=== PATIENT | female | born 1985 | race Caucasian/White ===

== ENCOUNTER 2018-08-03 11:08 | Emergency (ER) | payer BC, OTHER ==
--- NOTE | 2018-08-03 11:46 | UC ---
General HPI - HPI Summary HPI Summary: 32 yo female approx 3 weeks sinus congestion, runny nose, post nasal drip. Last 2 days c/o R ear pain, and R forehead and cheek pressure. Mild sore throat , attributes to cough. No sob / cp. No GI / / rash sx. Has tried several OTC cold meds without improvement. - History of Current Complaint Stated Complaint: SINUS' AND R EAR PAIN Time Seen by Provider: 08/03/18 11:42 Hx Obtained From: Patient - Allergy/Home Medications Allergies/Adverse Reactions: Allergies Allergy/AdvReac Type Severity Reaction Status Date / Time amoxicillin AdvReac See Comment Verified 08/03/18 11:44 Home Medications: Home Medications Control Pill 1 tab PO DAILY 08/03/18 [History Confirmed 08/03/18] PMH/Surg Hx/FS Hx/Imm Hx Previously Healthy: Yes - Family History Known Family History: Positive: None - Social History Occupation: Employed Full-time Review of Systems Constitutional: Negative Skin: Negative Eyes: Negative ENT: Other - see hpi Respiratory: Cough - see hpi Cardiovascular: Negative Gastrointestinal: Negative Genitourinary: Negative Motor: Negative Neurovascular: Negative Musculoskeletal: Negative Neurological: Negative - see hpi Psychological: Negative Is Patient Immunocompromised?: No All Other Systems Reviewed And Are Negative: Yes Physical Exam Triage Information Reviewed: Yes Appearance: Well-Nourished Vital Signs Reviewed: Yes Eye Exam: Normal ENT: Positive: Other - Post pharynx mild red, no sores or exudates Uvula midline. Tongue benign. R TM dull, griffiths, rtxd L TM normal light reflex + subj tender R frontal sinus R max sinus regions Neck exam: Normal Neck: Positive: Supple, Nontender Respiratory Exam: Normal Respiratory: Positive: Chest non-tender, Lungs clear, Normal breath sounds, No respiratory distress, No accessory muscle use Cardiovascular Exam: Normal Cardiovascular: Positive: RRR, No Murmur, Pulses Normal, Brisk Capillary Refill Abdominal Exam: Normal Abdomen Description: Positive: Nontender Musculoskeletal Exam: Normal - gait steady, moves x 4 ext's Neurological Exam: Normal - grossly nonfocal Psychological Exam: Normal - conversing easily and appropriately Skin Exam: Normal - no visible or reported rash Course/Dx - Course Course Of Treatment: Reviewed coa / tx plan. Questions as posed answered to the best of my ability. - Differential Dx - Multi-Symptom Provider Diagnoses: Sinusitis. R serous otitis Discharge - Sign-Out/Discharge Documenting (check all that apply): Patient Departure All imaging exams completed and their final reports reviewed: No Studies - Discharge Plan Condition: Stable Disposition: HOME Prescriptions: Azithromyxin ABI (NF) [Z-Abi (Zithromax) 250 mg tabs #6] 2 tab PO .TODAY, THEN 1 DAILY #6 tab Fluconazole [Diflucan 150 MG (NF)] 150 mg PO DAILY #2 tab Patient Education Materials: Sinusitis (ED), Serous Otitis Media (ED) Referrals: Danni Beaulieu NP [Primary Care Provider] - Additional Instructions: Follow up with your primary care provider, per routine. Seek medical attention for worse or new problems in the meantime. Use backup method for control (if you are taking pills) during the cycle(s ) in which you are taking antibiotics. Don't forget the azithromycin is long lasting (10 days). - Billing Disposition and Condition Condition: STABLE Disposition: Home
[2018-08-03 11:52] VITALS: BP 134/88
== END 2018-08-03 12:17 | disposition home or self-care (01) ==
LOC: UCCORT 11:08
DX: J32.9 Chronic sinusitis, unspecified (principal); H65.91 Unspecified nonsuppurative otitis media, right ear; Z88.1 Allergy status to other antibiotic agents
CPT/HCPCS: 99202; G0463

== ENCOUNTER 2018-11-26 16:32 | Emergency (ER) | payer OTHER ==
--- OUTSIDE RECORDS SUMMARY | 2018-11-26 16:52 | XMS REPORT | Continuity of Care Document ---
:1985 External Reference #:[id number] Author Name Danni Beaulieu N.P. Address [address] [place] [id number] Care Team Providers Name Role Phone Danni Beaulieu N.P. 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 as needed pain Work Note 11/25 Active no work Christofer 11/26/18 Danni N.P. Hydroxyzine 05/27 Active Capsules 25mg 30caps take 1 to Christofer Pam 2 Mashelle, capsules N.P. by mouth three times a day as needed Proair HFA 11/28 Active Aerosol 108(90Bas 8.500gm 2 puffs e) four Mashelle, mcg/Act times a N.P. day as needed Valtrex 06/25 Active Tablets 1gm 21tabs 1 by mouth Mashelle, three N.P. times a day x 7 days Escitalopram 05/20 Active Tablets 20mg 30tabs Take One Tablet By Danni, Mouth N.P. Every Day BD 06/23 Active 3ml 12units Use Every Month as Danni, Directed N.P. Syringe 25G 1 08/07 Active 12units use q Elverson, 10/15 Inch 3cc /2010 as Danni, directed N.P. Cyanocobalamin 08/09 Active Solution 1000mcg/M 30ml 1 ml im q L 2 weeks Masruchile, N.P. Cefdinir 11/28 Hx Capsules 300mg 20caps 1 by mouth Mashelle, - twice a N.P. 05/27 day x days Prednisone 11/28 Hx Tablets 20mg 10tabs 2 by mouth Mashelle, - every day N.P. 11/25 x 5 days /2018 Fluconazole 09/10 Hx Tablets 150mg 2tabs 1 by mouth Mashelle, - every day N.P. 11/28 x 1 and repeat in 5 days x 1 Amoxicillin 08/27 Hx Tablets 875mg 20tabs 1 by mouth Mashelle, - twice a N.P. 11/28 day x days Lidocaine HCL 04/12 Hx Solution 2% 50ml apply to affected Danni, - area tid N.P. 11/28 as directed Fluconazole 04/11 Hx Tablets 150mg 2tabs 1 by mouth Mashelle, - today and N.P. 11/28 repeat in 5 days Amoxicillin/Clav 04/08 Hx Tablets 875-125mg 20tabs 1 by vazquez Beaulieuanat mouth Mashelle, Potassium - every 12 N.P. 11/14 h for days Azithromycin 06/07 Hx Tablets 250mg 6tabs 2 by mouth day Mashelle, - one then N.P. 02/26 1 by mouth every day x 4 days Bontril PDM 06/07 Hx Tablets 35mg 30tabs 1 po qd Mashelle, - N.P. 02/26 Work Note 05/07 Hx no work 06/07/16-9 Masanne, - for N.P. 02/26 reasons Cheratussin ac 05/07 Hx Syrup 100-10mg/ 236ml 1 5ML teaspoon Masanne, - every 4-6 N.P. 06/07 h as needed cough Augmentin 01/24 Hx Tablets 875-125mg 20tabs 1 by mouth Mashelle, - twice a N.P. 06/07 day x days Bupropion HCL ER 01/02 Hx Tablets ER 150mg 30tabs take one Christofer, (XL) 24HR tablet by Danni, - mouth N.P. 02/26 morning Acetaminophen-Co 07/12 Hx Tablets 300-30mg 40tabs 1-2 tabs Christofer dealva #3 po q Mashelle, - 4-6hours N.P. 01/02 prn pain Work Note 07/12 Hx no work 07/18/15 Masruchile, - for N.P. 01/02 reasons Treximet 05/20 Hx Tablets 85-500mg 9tabs 1 po qt Elverson, first Mashelle, - sign of N.P. 02/26 migraine as directed Phendimetrazine 03/28 Hx Tablets 35mg 60tabs 1 by Christofer Tar mouth Mashelle, - twice a N.P. before meals Bontril PDM 03/08 Hx Tablets 35mg 180tabs 2 tabs Christofer, three Mashelle, - times a N.P. Valtrex 12/21 Hx Tablets 1gm 21tabs 1 by mouth Mashelle, - three N.P. 03/08 times day x 7 days Diflucan 11/12 Hx Tablets 150mg 2tabs 1 by mouth Mashelle, - every day N.P. 03/08 x 1 repeat in 5 days x 1 Augmentin 11/05 Hx Tablets 875-125mg 20tabs 1 by mouth Mashelle, - twice a N.P. 11/12 day x days Medrol (Bryce) 11/05 Hx Tablets 4mg 1pk as directed Danni, - N.P. 11/12 Azithromycin 11/01 Hx Tablets 250mg 6tabs 2 by mouth day Masanne, - one then N.P. 11/05 1 by mouth every day x 4 days Work Note 07/06 Hx no work 05/20/15 Danni, - for N.P. 01/02 reasons Escitalopram 07/06 Hx Tablets 20mg 30tabs Take One Tablet By Danni, - Mouth AT N.P. 05/20 Bed Escitalopram 06/16 Hx Tablets 10mg 30tabs 1 by Christofer, mouth Danni, - every at N.P. 07/06 bed Diflucan 01/13 Hx Tablets 100mg 5tabs 1 tabs qd x 5 days Danni, - N.P. 01/13 Diflucan 01/13 Hx Tablets 150mg 2tabs 1 po qd x and Danni, - repeat in N.P. 06/08 5 days x 1 Augmentin 01/06 Hx Tablets 875-125mg 20tabs 1 po bid x 10 days Danni, - N.P. 06/08 Cheratussin ac 01/06 Hx Syrup 100-10mg/ 236ml 1 5ML teaspoon Danni, - every 4-6 N.P. 06/08 h prn cough Medical Note 12/18 Hx Patient may not Danni, - attend N.P. 06/08 classes at this time for medical reasons Work Note 11/30 Hx No work 10/13/13- Danni, - 10/25/13 N.P. 07/06 medical reasons Cyclobenzaprine 11/17 Hx Tablets 5mg 30tabs 1 po tid , Danni, - N.P. 06/08 Magnesium 11/17 Hx Capsules 400mg 90caps 1 po qd Danni, - N.P. 03/08 Skelaxin 11/05 Hx Tablets 800mg 30tabs take one tablet by Danni, - mouth N.P. 11/17 times a day as needed Physical Therapy 10/23 Hx evaluate and treat Bianca Razo neck N.P. 11/17 strain and L elbow pain dx: neck strain, elbow pain after fall Work Note 10/23 Hx may return to Danni, - unrestric N.P. 11/17 yareli on 10/26/13 Cyclobenzaprine 10/15 Hx Tablets 10mg 30tabs take one tablet by Danni, - mouth N.P. 11/05 times a day Ibuprofen 10/15 Hx Tablets 800mg 32tabs 1 po qid with food Danni, - N.P. 06/08 Anusol-HC 07/22 Hx Suppositor 25mg 15units 1 pr tid y as Danni, - directed N.P. 10/15 Medical Note 07/06 Hx No work 10/23/13-1 Danni, - N.P. 06/08 medical reasons Azithromycin 07/01 Hx Tablets 250mg 6tabs 2 po day one then Danni, - 1 po qd x N.P. 07/22 4 days 03/20 Hx Tablets 1mg Folic 90tabs 1 po qd Elverson, Acid Danni, - N.P. 03/08 Wrist Splint 03/04 Hx 1units l wrist cock-up Danni, - splint at N.P. 10/15 hs Dx: pain/numb ness Valtrex 09/21 Hx Caplets 1,000mg 21caps 1 by Elverson mouth Masruchile, - three N.P. 12/21 times a day x 7 days Vistaril 08/17 Hx Capsules 25mg 30caps 1-2 po q Christofer 6 h prn Danni, - itch N.P. 10/15 Chelsie Allergy 08/07 Hx Tablets 180mg 30tabs 1 po qd Christofer Masanne, - N.P. 03/08 Omeprazole 07/16 Hx Capsules 20mg 90caps [address] Razo, - N.P. 03/08 Zithromax Z-Bryce 07/09 Hx Tablets 250mg 1tabs as directed Danni, - N.P. 08/07 Cheratussin ac 07/09 Hx Syrup 100-10mg/ 236ml 5ML teaspoon Danni, - every 4-6 N.P. 08/07 h prn cough Work Note 07/09 Hx may return to [facility], - work N.P. 10/1508/27/11 Work Note 02/21 Hx no work 02/21/11-5 Danni, - N.P. 07/09 medical reasons Work Note 02/13 Hx no work 02/13/11-/ Danni, - 07/24 N.P. 07/09 medical reasons Work Note 02/06 Hx no work 02/06/11-5 Danni, - N.P. 07/09 medical reasons Diflucan 01/31 Hx Tablets 150mg 1tabs 1 po qd x 1 Danni, - N.P. 07/09 Physical Therapy 01/22 Hx eval and treat l Danni, - wrist N.P. 07/09 pain dx: pain Work Note 01/22 Hx no work 01/22/11-4 Danni, - N.P. 03/19 for medical reasons Work Note 01/15 Hx no work 01/15/11-4/ Danni, - 08/24 for N.P. 03/19 medical reasons Zithromax Z-Bryce 11/09 Hx Tablets 250mg 1tabs as directed Danni, - N.P. 01/15 Tussionex 11/09 Hx Liquid ER 8-10mg/5M 60ml 1 Elverson Pen L teaspoon Danni, Extended Release - q 12 N.P. Ondansetron Odt 10/17 Hx Tablets 4mg 12tabs 1-2 tabs Dispers tid prn Danni, - nausea N.P. 07/09 Work Note 10/[facility] 07/0903/07/11 Buspar 09/18 Hx Tablets 15mg 60tabs 1/2 pill po bid x Danni, - 1 week, N.P. 07/09 then 1 po bid Treximet 07/03 Hx Tablets 85-500mg 8tabs 1 as directed Danni, - N.P. 07/09 Medrol (Bryce) 03/14 Hx Tablets 4mg 1pk directed Masruchile, - N.P. 04/07 Work Note 02/21 Hx no work 07/03/10-9 Danni, - N.P. 09/18 for medical reasons Augmentin 02/07 Hx Tablets 875-125mg 20tabs 1 po bid Epptc c Bianca Nelson MD 02/21 Hydrocodone-Acet 11/17 Hx Tablets 5-500mg 40tabs 1-2 po q Christofer, 4-6h prn Danni, - peralta N.P. 02/07 Work Note 11/17 Hx no work , 11/14/09-2/ Danni, - 02/20 N.P. 02/07 for medical reasons Cyanocobalamin 07/19 Hx Solution 1000mcg/M 1bottle 100mcg L (0.1cc) Danni, - sq q mo N.P. 08/09 Work Note 07/06 Hx no work , 07/06/09-1 Danni, - 0 N.P. 02/07 for medical reasons Diflucan 07/06 Hx Tablets 100mg 5tabs 1 tabs qd x 5 days Danni, - N.P. 02/07 Medrol Dosepak 05/19 Hx Tablets 4mg 1Pack as Eppolito, directete Bianca Álvarez MD 07/06 Bontril PDM 12/13 Hx Tablets 35mg 180tabs 2 tabs , tid 1 Mashelle, - hour N.P. 02/07 meals Lexapro 11/26 Hx Tablets 20mg 30tabs 1 po qd Christofer, Danni, - N.P. 05/19 Lexapro 11/12 Hx Tablets 10mg 30tabs 1 po qd Christofer, Danni, - N.P. 11/26 Work Note 11/12 Hx no work Christofer, 11/12/08-2 Danni, - N.P. 05/19 for medical reasons Omeprazole 11/12 Hx Capsules 20mg 90caps [address] Razo, - N.P. 07/09 Work Note 07/12 Hx no work , 07/12/08-9 Danni, - N.P. 11/12 for medical reasons Tylenol/Codeine 04/22 Hx Tablets #3 30tabs 1-2 po q Christofer, # 4-6 h prn Mashelle, - N.P. 11/12 Phentermine HCL 04/12 Hx Capsules 30mg 30caps 1 po q am Mashelle, - N.P. 11/12 Anaprox DS 04/12 Hx Tablets 550mg 30tabs 1 PO Q HR With Mashelle, - Food N.P. 11/12 Augmentin 04/02 Hx Tablets 875mg 20tabs 1 po q hrs x 10 Mashelle, - days N.P. 04/12 Biaxin 12/17 Hx Tablets 500mg 20tabs 1 po bid x 10 days Mashelle, - N.P. 04/02 Medrol Dosepak 12/17 Hx Tablets 4mg 1PK as , Directed Mashelle, - N.P. 04/02 Proair HFA 12/17 Hx Aerosol 108mcg/Ac 1Can 2 inhales t q 4-6 h Mashelle, - prn N.P. 02/07 Medrol Dosepak 12/17 Hx Tablets 4mg 1PK as , directed Mashelle, - N.P. 04/02 Zithromax Z-Bryce 10/20 Hx Tablets 250mg 1Pak as , Directed Mashelle, - N.P. 12/17 Hycotuss 10/20 Hx Syrup 5-100/5 120ml 1 tsp q Christofer, 4-6 hours Mashelle, - prn cough N.P. 04/02 Work Note 08/29 Hx no work 08/27-/ Mashelle, - 28/04 N.P. 09/23 for medical reasons Miralax 08/14 Hx Powder [id number] 1Bottle 17GM In 8Oz Of Mashelle, - Fluid qd N.P. 10/20 Directed Tylenol/Codeine 08/12 Hx Tablets #3 40tabs 1-2 po q , # 4-6 h prn Mashelle, - N.P. 10/20 Radiology 08/12 Hx l-S Christofer spine, Danni, - coccyx N.P. 09/23 dx: pain Work Note 08/12 Hx please excuse Danni, - from work N.P. 09/2308/14/07-10/15/06 for medical reasons School Note 08/12 Hx no school Christofer08/12/07- Danni, - 08/13/07 N.P. 09/23 for medical reasons Effexor 08/04 Hx Tablets 37.5mg Samples 1 PO qd Elverson Masruchile, - N.P. 10/20 Depakote ER 06/30 Hx Tablets ER 500mg 120tabs 1 Poqd Christofer 24HR Diegole, - N.P. 08/04 Topamax 06/30 Hx Tablets 50mg 90tabs 1 po bid Elverson Diegole, - N.P. 04/12 Flexeril 06/30 Hx Tablets 10mg 30tabs 1 PO q hs Christofer Mashelle, - N.P. 08/04 Keflex 04/14 Hx Capsules 500mg 28caps 1 po qid Christofer x 7 days Diegole, - N.P. 06/30 Diflucan 04/14 Hx Tablets 100mg 10tabs 1 tabs qd Christofer x 10 days Masruchile, - N.P. 06/30 Chelsie-D 24 04/07 Hx Tablets ER 24Hour 90tabs 1 po qd Christofer, 24HR Diegole, - N.P. 02/07 Elocon 03/13 Hx Cream 0.1% 15gm apply bid Christofer Diegole, - N.P. 04/07 Zovirax 02/19 Hx Tablets 400mg 28tabs 1 PO qid Christofer X 7 Days Masruchile, - N.P. 10/20 Work Note 12/30 Hx please excuse Danni, - from work N.P. 01/0112/30 for medical reasons Zithromax Z-Bryce 10/17 Hx Tablets 250mg 1Pak as Directed Mashelle, - N.P. 10/27 Hycotuss 10/17 Hx Liquid 100mg;5mg 120ml 1 tsp ac Christofer, Expectorant /2006 /5ML hs Mashelle, - N.P. 03/13 Duratuss GP 10/17 Hx Tablets 1200mg;12 24tabs 1 po q 12 0 mg h Mashelle, - N.P. 04/07 Work Excuse 10/17 Hx no work 03/25/07-6 Mashelle, - /27/04 N.P. 08/04 for medical reasons Mucinex OTC 08/08 Hx 2 pills every 12 Mashelle, - hours N.P. 10/17 Robitussin Cough 08/08 Hx 2 Gels Christofer, Gels Every 4-6 Mashelle, - Hours as N.P. 03/13 For Cough Biaxin 08/06 Hx Tablets 500mg 20tabs 1 po bid Elverson x 10 days Mashelle, - N.P. 08/18 Zovirax 07/09 Hx Ointment 5% [facility]gm [facility] 07/09 Valtrex 07/09 Hx Caplets 1,000mg 21caps 1 po tid x 7 days Mashelle, - N.P. 05/19 Metronidazole 05/21 Hx Gel 0.75% 70G insert Christofer, one Mashelle, - applicato N.P. 08/08 rful q hs x 5 Fioricet 05/16 Hx Tablets 50mg;40mg 60tabs 1-2 Tabs Christofer, ;325MG Q 4 Hours Mashelle, - as Needed N.P. 10/20 Headache Ortho-Novum 01/03 Hx Tablets 1mg;0.035 3Pak 1 po qd mg Mashelle, - N.P. 03/20 Tussi-12D 12/11 Hx Tablets 60mg;5 mg 24tabs 2 tabs q Elverson, /2006 12 hrs Mashelle, - N.P. 01/03 Vicodin 11/08 Hx Tablets 5mg;500 30tabs 1 po q mg 4-6 hrs Mashelle, - prn N.P. 01/03 Medrol Dose Bryce 05/03 Hx Tablets 4mg 1PK as directed Masruchile, - N.P. 01/03 Ortho-Novum 04/23 Hx Tablets 0.5mg;0.0 1Pack 1 po qd Elverson, 35mg;0.75 Mashelle, - MG N.P. 01/03 Gabitril 02/12 Hx Tablets 4mg 30tabs 1 po qhs Masruchile, - N.P. 01/03 Nortrel 01/16 Hx Tablets 0.035mg;0 84tabs .5 mg Diegole, - N.P. 01/03 Nexium 01/15 Hx Capsules 40mg 90caps 1 po 1/2hour Danni, - prior to N.P. 03/15 dinner /2009 Keflex 01/02 Hx Tablets 500mg 21tabs 1 po tid x 7 days Masruchile, - N.P. 01/03 Lidex 01/02 Hx Cream 0.05% 30gm apply bid x 10 days Danni, - N.P. 01/03 Wellbutrin XL 01/02 Hx Tablets 300mg 90tabs 1 po qd in am anne, - N.P. 05/16 Tylenol W11/20 Hx Tablets 300mg;30 30tabs 1 -2 tabs Elverson, Codeine #3 /2004 mg po qhs4-6 Masruchile, - prn pain N.P. 01/03 Inderal Hx Tablets 80mg 0tabs 1 po bid Unknown /0000 - 08/08 Amitriptyline Hx Tablets 10mg 0tabs 3 po hs Unknown /0000 - 03/13 Medications Administered in Office Medication Date Status Form Strength Qnty SIG Indications Ordering Provider PPD Administered Injection Christofer, 018 Mashelle, N.P. B-12 Injection Administered Injection Christofer, 011 Mashelle, N.P. B-12 Injection Administered Injection Christofer, 011 Mashelle, N.P. B-12 Injection Administered Injection Elverson, 010 Mashelle, N.P. B-12 Injection Administered Injection Nurses 010 Schedule Hudson Torodol Administered Injection Elverson, Injection 15 010 Mashelle, MG Dose N.P. Torodol Administered Injection Elverson, Injection 15 010 Mashelle, MG Dose N.P. B-12 Injection Administered Injection Nurses 010 Schedule Hudson B-12 Injection Administered Injection Christofer, 010 Mashelle, N.P. B-12 Injection Administered Injection Nurses 010 Schedule Hudson B-12 Injection Administered Injection Nurses 010 Schedule [place] B-12 Injection Administered Injection Nurses 010 Schedule [place] B-12 Injection Administered Injection Christofer, 010 Mashelle, N.P. B-12 Injection Administered Injection Nurses 010 Schedule [place] B-12 Injection Administered Injection Nurses 010 Schedule [place] B-12 Injection Administered Injection Nurses 010 Schedule [place] B-12 Injection Administered Injection Nurses 010 Schedule [place] B-12 Injection Administered Injection Nurses 009 Schedule Hudson B-12 Injection Administered Injection Nurses 009 Schedule [place] B-12 Injection Administered Injection Nurses 009 Schedule [place] B-12 Injection Administered Injection Nurses 009 Schedule [place] B-12 Injection Administered Injection Nurses 009 Schedule [place] B-12 Injection Administered Injection Nurses 009 Schedule [place] B-12 Injection Administered Injection Nurses 009 Schedule [place] B-12 Injection Administered Injection Nurses 009 Schedule [place] B-12 Injection Administered Injection Elverson, 009 Mashelle, N.P. Torodol Administered Injection Elverson, Injection 15 003 Mashelle, MG Dose N.P. PPD Administered Injection Elverson, 003 Mashelle, N.P. Immunizations CPT Code Status Date Vaccine Lot # [id number] Given 02/07/2010 Tetanus And Diptheria Toxoids For Adult [id number] Use-preservative free 51215 Given 09/08/2003 Afluria Or Fluvirin Flu Vac Intramuscular 20025 Given 10/23/2000 Influenza Virus Vaccine, Whole Virus, Intramuscular Or Jet Inj. 39500 Given 04/25/1999 Immunization Td 7 Yrs Or Older 69008 Given 02/27/1990 IPV / Poliomyelitis Immunization 52291 Given 02/27/1990 MMR Virus Immunization 95048 Given 02/27/1990 DTaP Immunization 7 Yrs & Younger [id number] 15164 Given 04/05/1986 IPV / Poliomyelitis Immunization 71975 Given 04/05/1986 DTaP Immunization 7 Yrs & Younger [id number] 72430 Given 01/20/1986 MMR Virus Immunization 51725 Given 09/07/1985 IPV / Poliomyelitis Immunization [id number] 78661 Given 04/03/1985 DTaP Immunization 7 Yrs & Younger [id number] 98043 Given 03/02/1985 IPV / Poliomyelitis Immunization 98823 Given 03/02/1985 DTaP Immunization 7 Yrs & Younger [id number] 38506 Given 1984 IPV / Poliomyelitis Immunization 96688 Given 1984 DTaP Immunization 7 Yrs & Younger [id number] 88329 Refused 08/03/2018 Influenza Vac, Quadrivalent, Split, 0.5mL Dosage, Im Use Vital Signs Date Vital Result Comment 11/25/2018 11:38am Body Temperature 97.7 F Weight 256.12 lb Heart Rate 82 /min BP Systolic 124 mmHg BP Diastolic 72 mmHg O2 % BldC Oximetry 98 % 05/27/2018 11:20am BP Systolic 126 mmHg BP Diastolic 82 mmHg 05/27/2018 11:10am Body Temperature 98.4 F Weight 254.00 lb Heart Rate 78 /min O2 % BldC Oximetry 98 % 11/28/2017 10:28am Body Temperature 97.9 F Heart Rate 84 /min BP Systolic 118 mmHg BP Diastolic 82 mmHg O2 % BldC Oximetry 96 % 08/27/2017 3:23pm Body Temperature 98.6 F Weight 260.00 lb Heart Rate 75 /min BP Systolic 123 mmHg BP Diastolic 84 mmHg O2 % BldC Oximetry 99 % 04/12/2017 10:42am Body Temperature 98.1 F Weight 253.00 lb Heart Rate 93 /min BP Systolic 122 mmHg BP Diastolic 83 mmHg O2 % BldC Oximetry 99 % 04/08/2017 9:28am Body Temperature 98.1 F Weight 252.00 lb Heart Rate 94 /min BP Systolic 100 mmHg BP Diastolic 70 mmHg O2 % BldC Oximetry 98 % 02/26/2017 2:44pm Body Temperature 97.9 F Weight 260.00 lb Heart Rate 93 /min BP Systolic 143 mmHg BP Diastolic 97 mmHg Height 68 inches 5'8" O2 % BldC Oximetry 99 % BMI (Body Mass Index) 39.5 kg/m2 06/07/2016 10:19am Body Temperature 97.2 F Weight 247.00 lb Heart Rate 113 /min BP Systolic 132 mmHg BP Diastolic 85 mmHg O2 % BldC Oximetry 97 % 05/07/2016 11:54am Body Temperature 98.4 F Weight 244.38 lb Heart Rate 80 /min BP Systolic 129 mmHg BP Diastolic 88 mmHg O2 % BldC Oximetry 98 % 01/25/2016 10:01am Body Temperature 97.5 F Weight 248.50 lb Heart Rate 92 /min BP Systolic 118 mmHg BP Diastolic 74 mmHg O2 % BldC Oximetry 99 % 01/03/2016 8:34am Body Temperature 97.9 F Weight 250.00 lb Heart Rate 99 /min BP Systolic 104 mmHg BP Diastolic 74 mmHg O2 % BldC Oximetry 98 % 07/12/2015 1:23pm Body Temperature 97.7 F Weight 244.38 lb Heart Rate 88 /min BP Systolic 128 mmHg BP Diastolic 98 mmHg O2 % BldC Oximetry 98 % 05/20/2015 10:01am Body Temperature 97.3 F Weight 243.00 lb Heart Rate 101 /min BP Systolic 118 mmHg BP Diastolic 84 mmHg O2 % BldC Oximetry 98 % 03/28/2015 9:15am Weight 251.00 lb Height 68 inches 5'8" BMI (Body Mass Index) 38.2 kg/m2 02/21/2015 8:06am Body Temperature 97.5 F Weight 251.00 lb Heart Rate 83 /min BP Systolic 100 mmHg BP Diastolic 68 mmHg O2 % BldC Oximetry 98 % 01/04/2015 10:58am Body Temperature 97.5 F Weight 247.50 lb Heart Rate 84 /min BP Systolic 124 mmHg BP Diastolic 86 mmHg O2 % BldC Oximetry 98 % 11/01/2014 9:38am Body Temperature 98.5 F Heart Rate 116 /min BP Systolic 110 mmHg BP Diastolic 70 mmHg Respiratory Rate 20 /min O2 % BldC Oximetry 97 % 07/06/2014 1:27pm Weight 236.50 lb Heart Rate 87 /min BP Systolic 118 mmHg BP Diastolic 72 mmHg O2 % BldC Oximetry 98 % 06/16/2014 10:11am Body Temperature 98.3 F Weight 236.25 lb Heart Rate 81 /min BP Systolic 120 mmHg BP Diastolic 72 mmHg O2 % BldC Oximetry 98 % 06/08/2014 1:38pm Body Temperature 98.2 F Weight 234.00 lb Heart Rate 71 /min BP Systolic 100 mmHg BP Diastolic 72 mmHg O2 % BldC Oximetry 98 % 01/06/2014 9:57am Body Temperature 97.9 F Weight 243.12 lb Heart Rate 91 /min BP Systolic 112 mmHg BP Diastolic 78 mmHg O2 % BldC Oximetry 98 % 12/28/2013 9:56am Body Temperature 98.1 F Weight 243.00 lb Heart Rate 81 /min BP Systolic 120 mmHg BP Diastolic 80 mmHg O2 % BldC Oximetry 97 % 12/18/2013 9:37am Body Temperature 98.0 F Weight 241.00 lb Heart Rate 89 /min BP Systolic 120 mmHg BP Diastolic 72 mmHg O2 % BldC Oximetry 98 % 11/30/2013 1:20pm Body Temperature 97.6 F Weight 246.12 lb Heart Rate 82 /min BP Systolic 112 mmHg BP Diastolic 80 mmHg O2 % BldC Oximetry 98 % 11/17/2013 10:55am Body Temperature 96.3 F Weight 241.25 lb Heart Rate 83 /min BP Systolic 110 mmHg BP Diastolic 80 mmHg O2 % BldC Oximetry 98 % 11/05/2013 9:58am Body Temperature 97.9 F Weight 240.00 lb Heart Rate 83 /min BP Systolic 130 mmHg BP Diastolic 80 mmHg Respiratory Rate 20 /min O2 % BldC Oximetry 98 % 10/23/2013 10:57am Body Temperature 98.3 F Weight 241.00 lb Heart Rate 77 /min BP Systolic 108 mmHg BP Diastolic 78 mmHg O2 % BldC Oximetry 98 % 10/15/2013 10:36am Body Temperature 97.6 F Weight 239.38 lb Heart Rate 81 /min BP Systolic 130 mmHg BP Diastolic 76 mmHg O2 % BldC Oximetry 98 % 07/22/2013 10:44am Body Temperature 96.6 F Weight 231.00 lb Heart Rate 84 /min BP Systolic 120 mmHg BP Diastolic 70 mmHg O2 % BldC Oximetry 98 % 07/01/2013 10:51am Body Temperature 98.7 F Weight 236.00 lb Heart Rate 96 /min BP Systolic 128 mmHg BP Diastolic 80 mmHg O2 % BldC Oximetry 97 % 03/20/2012 10:13am Body Temperature 97.8 F Weight 231.00 lb Heart Rate 85 /min BP Systolic 135 mmHg BP Diastolic 81 mmHg O2 % BldC Oximetry 100 % 03/04/2012 9:00am Body Temperature 98.2 F Weight 233.00 lb Heart Rate 95 /min BP Systolic 130 mmHg BP Diastolic 85 mmHg O2 % BldC Oximetry 98 % 08/24/2011 9:17am Body Temperature 97.4 F Weight 229.00 lb Heart Rate 88 /min BP Systolic 117 mmHg BP Diastolic 80 mmHg O2 % BldC Oximetry 98 % 08/17/2011 8:46am Body Temperature 98.0 F Weight 224.00 lb Heart Rate 84 /min BP Systolic 118 mmHg BP Diastolic 80 mmHg O2 % BldC Oximetry 98 % 08/07/2011 11:31am Body Temperature 97.9 F Weight 225.00 lb Heart Rate 98 /min BP Systolic 108 mmHg BP Diastolic 68 mmHg O2 % BldC Oximetry 99 % 07/09/2011 1:26pm Body Temperature 97.6 F Weight 225.00 lb Heart Rate 77 /min BP Systolic 102 mmHg BP Diastolic 70 mmHg O2 % BldC Oximetry 98 % 03/20/2011 9:16am Weight 224.00 lb Heart Rate 73 /min BP Systolic 102 mmHg BP Diastolic 70 mmHg Height 68 inches 5'8" O2 % BldC Oximetry 97 % BMI (Body Mass Index) 34.1 kg/m2 02/20/2011 12:13pm Heart Rate 109 /min BP Systolic 100 mmHg BP Diastolic 68 mmHg O2 % BldC Oximetry 98 % 02/13/2011 10:58am Weight 230.00 lb Heart Rate 93 /min BP Systolic 110 mmHg BP Diastolic 70 mmHg O2 % BldC Oximetry 97 % 02/06/2011 1:41pm Weight 231.00 lb Heart Rate 74 /min BP Systolic 120 mmHg BP Diastolic 80 mmHg O2 % BldC Oximetry 98 % 01/22/2011 10:10am Weight 226.00 lb Heart Rate 96 /min BP Systolic 102 mmHg BP Diastolic 70 mmHg 01/15/2011 2:22pm Weight 231.00 lb Heart Rate 91 /min BP Systolic 110 mmHg BP Diastolic 68 mmHg O2 % BldC Oximetry 99 % 11/09/2010 7:51am Body Temperature 98.4 F Weight 224.00 lb Heart Rate 93 /min BP Systolic 110 mmHg BP Diastolic 80 mmHg O2 % BldC Oximetry 96 % 10/17/2010 11:51am Body Temperature 97.8 F Weight 236.00 lb Heart Rate 85 /min BP Systolic 118 mmHg BP Diastolic 78 mmHg Height 68 inches 5'8" O2 % BldC Oximetry 97 % BMI (Body Mass Index) 35.9 kg/m2 09/18/2010 11:29am Body Temperature 98.1 F Weight 230.00 lb Heart Rate 88 /min BP Systolic 120 mmHg BP Diastolic 74 mmHg Height 68 inches 5'8" O2 % BldC Oximetry 98 % BMI (Body Mass Index) 35.0 kg/m2 07/03/2010 1:20pm Weight 228.00 lb Heart Rate 94 /min BP Systolic 110 mmHg BP Diastolic 80 mmHg O2 % BldC Oximetry 99 % 06/29/2010 11:44am Weight 229.00 lb Heart Rate 76 /min BP Systolic 110 mmHg BP Diastolic 72 mmHg 04/12/2010 3:45pm Body Temperature 98.1 F Weight 230.00 lb Heart Rate 78 /min BP Systolic 120 mmHg BP Diastolic 70 mmHg Height 68 inches 5'8" O2 % BldC Oximetry 99 % BMI (Body Mass Index) 35.0 kg/m2 04/07/2010 10:16am Body Temperature 98.1 F Weight 228.00 lb Heart Rate 82 /min BP Systolic 130 mmHg BP Diastolic 72 mmHg 02/08/2010 12:30pm Body Temperature 98.2 F Heart Rate 102 /min BP Systolic 118 mmHg BP Diastolic 68 mmHg Height 68 inches 5'8" O2 % BldC Oximetry 98 % 02/07/2010 1:01pm Body Temperature 98.1 F Weight 228.00 lb BP Systolic 128 mmHg BP Diastolic 82 mmHg 12/23/2009 8:49am Body Temperature 97.8 F Weight 228.00 lb Heart Rate 76 /min BP Systolic 124 mmHg BP Diastolic 76 mmHg 11/17/2009 9:07am Body Temperature 98.0 F Weight 222.00 lb Heart Rate 70 /min BP Systolic 122 mmHg BP Diastolic 70 mmHg 07/19/2009 9:13am Body Temperature 98.3 F Weight 221.00 lb Heart Rate 70 /min BP Systolic 142 mmHg BP Diastolic 70 mmHg 07/06/2009 12:25pm Body Temperature 97.6 F Weight 223.00 lb Heart Rate 82 /min BP Systolic 126 mmHg BP Diastolic 78 mmHg Height 68 inches 5'8" BMI (Body Mass Index) 33.9 kg/m2 05/19/2009 3:05pm Body Temperature 97.8 F Weight 221.00 lb Heart Rate 78 /min BP Systolic 122 mmHg BP Diastolic 76 mmHg 12/17/2008 8:56am Body Temperature 97.7 F Weight 218.00 lb Heart Rate 78 /min BP Systolic 128 mmHg BP Diastolic 70 mmHg 12/13/2008 1:31pm Body Temperature 97.9 F Weight 215.00 lb Heart Rate 80 /min BP Systolic 118 mmHg BP Diastolic 84 mmHg Height 67.5 inches 5'7.50" BMI (Body Mass Index) 33.2 kg/m2 11/26/2008 10:20am Body Temperature 98.3 F Weight 212.00 lb Heart Rate 82 /min BP Systolic 116 mmHg BP Diastolic 78 mmHg Height 67.5 inches 5'7.50" O2 % BldC Oximetry 98 % BMI (Body Mass Index) 32.7 kg/m2 11/12/2008 8:12am Body Temperature 98.7 F Weight 208.00 lb Heart Rate 87 /min BP Systolic 120 mmHg BP Diastolic 78 mmHg Height 67.5 inches 5'7.50" O2 % BldC Oximetry 98 % BMI (Body Mass Index) 32.1 kg/m2 07/12/2008 1:38pm Body Temperature 97.6 F Weight 199.00 lb Heart Rate 92 /min BP Systolic 121 mmHg BP Diastolic 83 mmHg Height 65 inches 5'5" BMI (Body Mass Index) 33.1 kg/m2 05/13/2008 3:25pm Body Temperature 98.4 F Weight 203.00 lb Heart Rate 82 /min BP Systolic 126 mmHg BP Diastolic 74 mmHg Height 65 inches 5'5" BMI (Body Mass Index) 33.8 kg/m2 04/15/2008 9:48am Weight 210.00 lb Height 65 inches 5'5" BMI (Body Mass Index) 34.9 kg/m2 04/12/2008 3:27pm Body Temperature 98.1 F Weight 210.00 lb Heart Rate 76 /min BP Systolic 120 mmHg BP Diastolic 66 mmHg 04/02/2008 9:54am Body Temperature 97.6 F Weight 209.00 lb Heart Rate 76 /min BP Systolic 138 mmHg BP Diastolic 90 mmHg 12/18/2007 1:48pm Body Temperature 98.1 F Weight 199.00 lb Heart Rate 89 /min BP Systolic 127 mmHg BP Diastolic 73 mmHg 10/20/2007 1:15pm Body Temperature 98.6 F Weight 199.00 lb Heart Rate 92 /min BP Systolic 118 mmHg BP Diastolic 73 mmHg 08/29/2007 9:42am Weight 198.00 lb Heart Rate 93 /min BP Systolic 118 mmHg BP Diastolic 80 mmHg 08/12/2007 8:55am Body Temperature 97.5 F Weight 197.00 lb Heart Rate 81 /min BP Systolic 116 mmHg BP Diastolic 79 mmHg 08/04/2007 10:50am Body Temperature 97.1 F Weight 197.00 lb Heart Rate 75 /min BP Systolic 111 mmHg BP Diastolic 72 mmHg 06/30/2007 10:28am Body Temperature 97.9 F Weight 191.00 lb Heart Rate 72 /min BP Systolic 110 mmHg BP Diastolic 86 mmHg 04/14/2007 3:21pm Body Temperature 98.1 F Weight 196.00 lb Heart Rate 88 /min BP Systolic 90 mmHg BP Diastolic 60 mmHg 04/07/2007 3:25pm Body Temperature 98.5 F Weight 194.00 lb Heart Rate 80 /min BP Systolic 102 mmHg BP Diastolic 64 mmHg 03/13/2007 8:05am Body Temperature 97.9 F Weight 193.00 lb Heart Rate 76 /min BP Systolic 100 mmHg BP Diastolic 70 mmHg 11/14/2006 1:09pm Body Temperature 98.0 F Weight 186.00 lb Heart Rate 76 /min BP Systolic 132 mmHg BP Diastolic 68 mmHg 10/17/2006 8:05am Body Temperature 97.4 F Weight 187.00 lb Heart Rate 72 /min BP Systolic 104 mmHg BP Diastolic 60 mmHg 08/08/2006 1:08pm Body Temperature 98.2 F Weight 184.00 lb Heart Rate 100 /min BP Systolic 120 mmHg BP Diastolic 70 mmHg 05/16/2006 1:33pm Weight 186.00 lb Heart Rate 60 /min BP Systolic 100 mmHg BP Diastolic 64 mmHg 01/03/2006 1:48pm Body Temperature 98.4 F Weight 185.00 lb Heart Rate 100 /min BP Systolic 124 mmHg BP Diastolic 70 mmHg 12/13/2005 3:43pm Body Temperature 98.4 F Weight 183.00 lb Heart Rate 96 /min BP Systolic 116 mmHg BP Diastolic 80 mmHg 11/20/2005 1:34pm Body Temperature 97.8 F Weight 185.00 lb Heart Rate 100 /min BP Systolic 108 mmHg BP Diastolic 70 mmHg 11/13/2005 2:17pm Body Temperature 98.2 F Weight 188.00 lb Heart Rate 84 /min BP Systolic 120 mmHg BP Diastolic 84 mmHg 08/28/2005 10:48am Body Temperature 98.9 F Weight 180.00 lb Heart Rate 88 /min BP Systolic 104 mmHg BP Diastolic 74 mmHg 02/19/2005 10:11am Body Temperature 98.1 F Weight 191.00 lb Heart Rate 84 /min BP Systolic 110 mmHg BP Diastolic 74 mmHg 01/02/2005 2:27pm Body Temperature 98.0 F Weight 196.00 lb Heart Rate 88 /min BP Systolic 126 mmHg BP Diastolic 80 mmHg Results Test Date Facility Test Result H/L Range Note Laboratory test finding 02/26/2017 [facility] TSH 0.78 uIU/mL 0.35-4.94 1 CBC With Auto Diff 02/26/2017 [facility] WBC 7.9 K/uL 4.1-11.0 RBC 4.79 M/uL 4.00-5.40 Hemoglobin 13.4 gm/dL 12.0-16.0 Hematocrit 40.4 % 36.0-47.0 MCV 84.5 fL 80.0-97.0 MCH 28.0 pg 27.0-32.0 MCHC 33.1 g/dL 32.0-36.0 RDW 14.4 % 11.5-14.5 PLT Count 263 K/ul 140-400 Neutrophil 60.4 % 35.0-75.0 Lymphocyte 31.3 % 16.0-52.0 Monocyte 6.3 % 2.0-10.0 Eosinophil 1.4 % 0.0-5.0 Basophil 0.6 % 0.0-4.0 Abs Neutrophils 4.8 K/uL 2.1-8.0 Abs Lymphocytes 2.5 K/uL 0.8-5.5 Abs Monocytes 0.5 K/uL 0.1-1.0 Abs Eosinophils 0.1 K/uL 0.0-0.5 Abs Basophils 0.1 K/uL 0.0-0.3 Comprehensive Metabolic (CMP) 02/26/2017 [facility] Sodium 140 mmol/L 135- 146 2 Potassium 6.1 No visible h <SEE NOTE> mmol/L High 3.5-5.2 3 Chloride# 105 mmol/L 97-110 4 Carbon Dioxide 27 mmol/L 24-34 Glucose 90 mg/dL 70-105 BUN 12 mg/dL 6-26 Creatinine 0.7 mg/dL 0.5-1.4 Calcium 9.3 mg/dL 8.5-10.2 Total Protein 7.1 g/dL 6.0-8.0 Albumin 4.3 g/dL 3.6-4.9 Globulin 2.8 g/dL 2.0-3.5 A/G Ratio 1.5 Ratio 1.0-2.2 Total Bilirubin 0.3 mg/dL 0.1-1.3 Alkaline Phosphatase 82 U/L 24-140 Alt 18 U/L 3-42 Ast 15 U/L 8-42 Lorena Egfr >60 >60 5 Non [place]orena Egfr >60 >60 6 Anion Gap 14 mmol/L 7-16 7 Lipid 02/26/2017 [facility] Cholesterol 200 mg/dL High 50-199 Triglycerides 196 mg/dL 30-200 HDL 62 mg/dL 35-85 8 Chol/ HDL Ratio 3.2 ratio Low 3.7-5.6 VLDL 39 mg/dL High 2-29 LDL (Calc) 99 mg/dL 20-99 9 Laboratory test finding 02/26/2017 [facility] Vitamin B12 253 pg/mL 180- 914 Lyme Igm/Igg AB -RL 02/26/2017 [facility] Lyme Igm/Igg AB @ NEGATIVE (Neg) 10 Comprehensive Metabolic 02/21/2015 [facility] Sodium 141 mmol/L 134-142 11 (CMP) Potassium 4.9 mmol/L 3.5-5.2 Chloride 108 mmol/L 97-109 Carbon Dioxide 25 mmol/L 24-34 Glucose 98 mg/dL 70-105 BUN 10 mg/dL 6-26 Creatinine 0.6 mg/dL 0.5-1.4 Calcium 8.7 mg/dL 8.5-10.2 Total Protein 6.6 g/dL 6.0-8.0 Albumin 3.9 g/dL 3.6-4.9 Globulin 2.7 g/dL 2.0-3.5 A/G Ratio 1.4 Ratio 1.0-2.2 Total Bilirubin 0.2 mg/dL 0.1-1.3 Alkaline Phosphatase 62 U/L 24-140 Alt 12 U/L 3-42 Ast 10 U/L 8-42 Anion Gap 13 mmol/L 6-14 Lorena Egfr >60 >60 12 Non [place] Egfr >60 >60 13 Laboratory test finding 02/21/2015 [facility] Vitamin B12 149 pg/mL Low 180- 914 TSH 1.75 0.35-4.94 CBC With Auto Diff 02/21/2015 [facility] WBC 5.2 K/uL 4.1-11.0 RBC 4.51 M/uL Low 4.60-6.10 Hemoglobin 13.0 gm/dL Low 13.5-18.0 Hematocrit 39.7 % Low 41.0-53.0 MCV 87.9 fL 80.0-97.0 MCH 28.9 pg 27.0-32.0 MCHC 32.9 g/dL 32.0-36.0 RDW 13.8 % 11.5-14.5 PLT Count 205 K/ul 140-400 Neutrophil 49.2 % 35.0-75.0 Lymphocyte 40.1 % 16.0-52.0 Monocyte 6.8 % 2.0-10.0 Eosinophil 3.0 % 0.0-5.0 Basophil 0.9 % 0.0-4.0 Abs Neutrophils 2.6 K/uL 2.1-8.0 Abs Lymphocytes 2.1 K/uL 0.8-5.5 Abmon 0.4 K/uL 0.1-1.0 Abs Eosinophils 0.2 K/uL 0.0-0.5 Abs Basophils 0.0 K/uL 0.0-0.3 Laboratory test finding 07/22/2013 [facility] Vitamin B12 615 pg/mL 180- 914 CBC With Auto Diff 07/22/2013 [facility] WBC 6.1 K/uL 4.1-11.0 RBC 4.81 M/uL 4.60-6.10 Hemoglobin 13.9 gm/dL 13.5-18.0 Hematocrit 41.8 % 41.0-53.0 MCV 86.9 fL 80.0-97.0 MCH 28.9 pg 27.0-32.0 MCHC 33.3 g/dL 32.0-36.0 RDW 13.4 % 11.5-14.5 PLT Count 259 K/ul 140-400 Neutrophil 49.4 % 35.0-75.0 Lymphocyte 42.0 % 16.0-52.0 Monocyte 6.4 % 2.0-10.0 Eosinophil 1.5 % 0.0-5.0 Basophil 0.7 % 0.0-4.0 Abs Neutrophils 3.0 K/uL 2.1-8.0 Abs Lymphocytes 2.6 K/uL 0.8-5.5 Abmon 0.4 K/uL 0.1-1.0 Abs Eosinophils 0.1 K/uL 0.0-0.5 Abs Basophils 0.0 K/uL 0.0-0.3 Laboratory test 03/20/2011 [facility] 14 finding [phone] Allia <SEE NOTE> Affirm 03/20/2011 [facility] Trichomonas Negative Negative Vaginalis Gardnerella Vaginalis Negative Negative [place] Species Negative Negative Laboratory test finding 03/20/2011 [facility] Pap SEE NOTE 15 HPV Negative Negative 16 Laboratory test 04/07/2010 [facility] (Do not Use) TSH 0.99 uIU/ml 0.34 -5.60 17 finding [facility] [place] [address] [phone] Free T4 0.80 ng/dL 0.50-1.60 T3 (Triiodothyronine) - [place] 2.0 ng/mL High 0.7-1.9 18 Basic (BMP) 04/07/2010 [facility] (Do not Use) Sodium 141 mmol/L 135- 144 [facility] [place] [address] [phone] Potassium 4.4 mmol/L 3.6-5.2 Chloride 111 mmol/L High 97-110 Carbon Dioxide 22 mmol/L Low 23-32 Glucose 84 mg/dL 70-105 BUN 12 mg/dL 6-22 Creatinine 0.6 mg/dL 0.5-1.3 BUN/CR 20 Ratio Anion Gap 12 mmol/L 8-16 Calcium 9.3 mg/dL 8.6-10.2 19 GFR Calculation > 60 mL/min 60-175 20 GFR For > 60 mL/min 60-175 21 Laboratory test 02/21/2010 [facility] (Do not Use) Sure[facility] Pap - [place] (SEE NOTE) 22 finding [facility] [place] [address] [phone] Laboratory test 02/07/2010 [facility] (Do not Use) Helicobacter <0.40 U/ ML (<0.9 23, 24 finding [facility] Pylori AB Igg - 0) [place] [address] [place] [phone] Laboratory test 10/24/2009 [facility] (Do not Use) Vitamin B12 447 pg/mL 180-9 finding [facility] [address] [place], [place] [id number] [phone] CBC With Auto 10/24/2009 [facility] (Do not Use) WBC 6.7 K/ul 4.0-1 Diff [facility] 0.[address] [place] [id number] [phone] RBC 4.82 M/ul 4.70-6.10 Hemoglobin 14.0 GM/dl 13.5-18.0 Hematocrit 42.5 % 42.0-52.0 MCV 88.3 FL 80.0-97.0 MCH 29.1 pg 27.0-31.0 MCHC 32.9 g/dL 32.0-36.0 RDW 13.2 % 11.5-14.5 Platelet Count 243 K/ul 140-440 Neutrophils 44.7 % Low 50-70 Lymphocytes 46.6 % High 20-44 Monocytes 7.4 % 2-9 Eosinophil 0.9 % 0-4 Basophil 0.4 % 0-2 Absolute Neutrophils 3.0 K/ul 2.05-7.63 Absolute Lymphocytes 3.1 K/ul 0.8-4.8 Absolute Monocytes 0.5 K/ul 0.1-1.0 Absolute Eosinophils 0.1 K/ul 0.1-0.5 Absolute Basophils 0.0 K/ul 0.0-0.3 Hematology Comment (Comm2) N/A CBC With Auto Diff 08/09/2009 [facility] (Do not Use) WBC 4.5 K/ul 4.0- 10.9 25 [facility] [place], [place] [id number] [phone] RBC 4.40 M/ul Low 4.70-6.10 Hemoglobin 13.0 GM/dl Low 13.5-18.0 Hematocrit 39.0 % Low 42.0-52.0 MCV 88.7 FL 80.0-97.0 MCH 29.6 pg 27.0-31.0 MCHC 33.4 g/dL 32.0-36.0 RDW 13.3 % 11.5-14.5 Platelet Count 211 K/ul 140-440 Neutrophils 47.7 % Low 50-70 Lymphocytes 43.4 % 20-44 Monocytes 6.9 % 2-9 Eosinophil 1.5 % 0-4 Basophil 0.5 % 0-2 Absolute Neutrophils 2.1 K/ul 2.05-7.63 Absolute Lymphocytes 1.9 K/ul 0.8-4.8 Absolute Monocytes 0.3 K/ul 0.1-1.0 Absolute Eosinophils 0.1 K/ul 0.1-0.5 Absolute Basophils 0.0 K/ul 0.0-0.3 Hematology Comment (Comm2) N/A Laboratory test 08/09/2009 [facility] (Do not Use) Vitamin B12 431 pg/mL 180-914 finding [facility] [place] [address] [phone] Laboratory test 07/12/2009 [facility] (Do not Use) Vitamin B12 153 pg/mL Low 180-914 26 finding [facility] [place] [address] [phone] Folate 14.3 ng/ml 6.6-20.0 27 CBC With Auto Diff 07/12/2009 [facility] (Do not Use) WBC 5.6 K/ul 4.0- 10.9 [facility] [place] [address] [phone] RBC 4.63 M/ul Low 4.70-6.10 Hemoglobin 13.9 GM/dl 13.5-18.0 Hematocrit 40.7 % Low 42.0-52.0 MCV 87.8 FL 80.0-97.0 MCH 30.1 pg 27.0-31.0 MCHC 34.3 g/dL 32.0-36.0 RDW 12.8 % 11.5-14.5 Platelet Count 236 K/ul 140-440 Neutrophils 40.8 % Low 50-70 Lymphocytes 49.3 % High 20-44 Monocytes 8.5 % 2-9 Eosinophil 1.0 % 0-4 Basophil 0.4 % 0-2 Absolute Neutrophils 2.3 K/ul 2.05-7.63 Absolute Lymphocytes 2.8 K/ul 0.8-4.8 Absolute Monocytes 0.5 K/ul 0.1-1.0 Absolute Eosinophils 0.1 K/ul 0.1-0.5 Absolute Basophils 0.0 K/ul 0.0-0.3 Hematology Comment (Comm2) N/A Lipid Panel 02/24/2009 [facility] (Do not Use) Cholesterol 177 mg/dL 50 -199 28 [facility] [place] [address] [phone] Triglycerides 104 mg/dL 10-150 HDL 46 mg/dL 29-71 29 Chol/HDL Ratio 3.9 Ratio Low 4.0-6.7 30 VLDL 21 mg/dL 2-29 LDL (Calc) 110 mg/dL 20-129 31 CBC With Auto Diff 02/24/2009 [facility] (Do not Use) WBC 4.4 K/ul 4.0- 10.9 [facility] [place] [address] [phone] RBC 4.45 M/ul Low 4.70-6.10 Hemoglobin 13.3 GM/dl Low 13.5-18.0 Hematocrit 38.5 % Low 42.0-52.0 MCV 86.4 FL 80.0-97.0 MCH 29.9 pg 27.0-31.0 MCHC 34.6 g/dL 32.0-36.0 RDW 13.1 % 11.5-14.5 Platelet Count 213 K/ul 140-440 Neutrophils 44.3 % Low 50-70 Lymphocytes 46.3 % High 20-44 Monocytes 7.8 % 2-9 Eosinophil 1.4 % 0-4 Basophil 0.2 % 0-2 Absolute Neutrophils 1.9 K/ul Low 2.05-7.63 Absolute Lymphocytes 2.0 K/ul 0.8-4.8 Absolute Monocytes 0.3 K/ul 0.1-1.0 Absolute Eosinophils 0.1 K/ul 0.1-0.5 Absolute Basophils 0.0 K/ul 0.0-0.3 Hematology Comment (Comm2) N/A Laboratory test 02/24/2009 [facility] (Do not Use) TSH 1.40 uIU/ml 0.34 -5.60 finding [facility] [place] [address] [phone] CMP 02/24/2009 [facility] (Do not Use) Sodium 141 mmol/L 135-144 [place] [address] [phone] Potassium 3.9 mmol/L 3.6-5.2 Chloride 111 mmol/L High 97-110 32 Carbon Dioxide 21 mmol/L Low 23-33 Glucose 74 mg/dL 70-105 BUN 8 mg/dL 6-22 Creatinine 0.7 mg/dL 0.5-1.3 BUN/CR 11 Ratio Low 12.0-20.0 Calcium 8.7 mg/dL 8.6-10.2 33 Total Protein 6.4 g/dL 5.8-7.8 Albumin 3.5 g/dL 3.5-4.8 Globulin 2.9 g/dL 2.0-3.5 A/G Ratio 1.2 Ratio 1.0-2.2 Total Bilirubin 0.3 mg/dL 0.3-1.2 Alkaline Phosphatase 58 U/L 24-140 Alt 19 U/L 4-45 Ast 20 U/L 12-40 Anion Gap 12 mmol/L 8-16 GFR Calculation > 60 mL/min 60-175 34 GFR For > 60 mL/min 60-175 35 Laboratory test 12/18/2007 [facility] (Do not Use) TSH 0.63 uIU/ml 0.34 -5.60 finding [facility] [place] [address] [phone] CBC With Auto Diff 12/18/2007 [facility] (Do not Use) WBC 6.4 K/ul 4.0- 10.9 [place] [address] [phone] RBC 4.40 M/ul 4.20-5.40 Hemoglobin 13.3 GM/dl 12.5-16.0 Hematocrit 38.1 % 36.0-47.0 MCV 86.5 FL 80.0-97.0 MCH 30.2 pg 27.0-31.0 MCHC 34.9 g/dL 32.0-36.0 RDW 12.2 % 11.5-14.5 Platelet Count 237 K/ul 140-440 Neutrophils 53.7 % 50-70 Lymphocytes 36.7 % 20-44 Monocytes 7.7 % 2-9 Eosinophil 1.5 % 0-4 Basophil 0.4 % 0-2 Absolute Neutrophils 3.5 K/ul 2.05-7.63 Absolute Lymphocytes 2.3 K/ul 0.8-4.8 Absolute Monocytes 0.5 K/ul 0.1-1.0 Absolute Eosinophils 0.1 K/ul 0.1-0.5 Absolute Basophils 0.0 K/ul Low 0.1-0.3 CMP 12/18/2007 [facility] (Do not Use) Sodium 141 mmol/L 135-144 [facility] [place] [address] [phone] Potassium 4.0 mmol/L 3.6-5.2 Chloride 109 mmol/L 97-110 Carbon Dioxide 25 mmol/L 23-33 Glucose 92 mg/dL 70-105 BUN 7 mg/dL 6-22 Creatinine 0.6 mg/dL 0.5-1.3 BUN/CR 12 Ratio 12.0-20.0 Calcium 9.3 mg/dL 8.6-10.2 Total Protein 6.3 g/dL 5.8-7.8 Albumin 3.7 g/dL 3.5-4.8 Globulin 2.6 g/dL 2.0-3.5 A/G Ratio 1.4 Ratio 1.0-2.2 Total Bilirubin 0.3 mg/dL 0.3-1.2 Alkaline Phosphatase 59 U/L 24-140 Alt 17 U/L 4-45 Ast 19 U/L 12-40 Anion Gap 11 mmol/L 8-16 GFR Calculation > 60 mL/min 36 GFR For > 60 mL/min 37 Ebv Evaluation 12/18/2007 [facility] (Do not Use) Ebv Nuclear POSITIVE Abnormal (<0.90) 38 Panel -LA [facility] Ag [place] [address] [phone] Ebv Vca Igm - [place] NEGATIVE INDEX (<0.90) Ebv Early Ag, Igg - [place] NEGATIVE INDEX (<0.90) Ebv Vca Igg - [place] POSITIVE INDEX Abnormal (<0.90) 39 CBC With Auto Diff 08/29/2007 [facility] (Do not Use) WBC 5.3 K/ul 4.0- 10.9 [facility] [place] [address] [phone] RBC 5.06 M/ul 4.20-5.40 Hemoglobin 15.1 GM/dl 12.5-16.0 Hematocrit 44.1 % 36.0-47.0 MCV 87.1 FL 80.0-97.0 MCH 29.7 pg 27.0-31.0 MCHC 34.1 g/dL 32.0-36.0 RDW 12.1 % 11.5-14.5 Platelet Count 248 K/ul 140-440 Neutrophils 49.2 % Low 50-70 Lymphocytes 41.9 % 20-44 Monocytes 7.3 % 2-9 Eosinophil 1.4 % 0-4 Basophil 0.2 % 0-2 Absolute Neutrophils 2.6 K/ul 2.05-7.63 Absolute Lymphocytes 2.2 K/ul 0.8-4.8 Absolute Monocytes 0.4 K/ul 0.1-1.0 Absolute Eosinophils 0.1 K/ul 0.1-0.5 Absolute Basophils 0.0 K/ul Low 0.1-0.3 CMP 08/29/2007 [facility] (Do not Use) Sodium 139 mmol/L 135-144 [facility] [place], [place] [id number] [phone] Potassium 4.7 mmol/L 3.6-5.2 Chloride 112 mmol/L High 97-110 Carbon Dioxide 22 mmol/L Low 23-33 Glucose 84 mg/dL 70-105 BUN 6 mg/dL 6-22 Creatinine 0.7 mg/dL 0.5-1.3 BUN/CR 9 Ratio Low 12.0-20.0 Calcium 9.2 mg/dL 8.6-10.2 Total Protein 6.6 g/dL 5.8-7.8 Albumin 3.8 g/dL 3.5-4.8 Globulin 2.8 g/dL 2.0-3.5 A/G Ratio 1.4 Ratio 1.0-2.2 Total Bilirubin 0.6 mg/dL 0.3-1.2 Alkaline Phosphatase 50 U/L 24-140 Alt 22 U/L 4-45 Ast 22 U/L 12-40 Anion Gap 10 mmol/L 8-16 GFR Calculation > 60 mL/min 40 GFR For > 60 mL/min 41 Laboratory test 05/16/2006 [facility] (Do not Use) Latasha, SEE REFERENCE 42 finding [facility] Thinprep - LA [place] <SEE NOTE> [place] [id number] [phone] Chlamydia And 05/16/2006 [facility] (Do not Use) Chlamydia By NEGATIVE Negative GC [facility] [place] [address] [phone] Laboratory test 05/16/2006 [facility] (Do not Use) GC By D[place] [address] [phone] Chlamydia And 08/28/2005 [facility] (Do not Use) GC By [place] [address] [phone] Chlamydia By Dna Probe NEGATIVE Negative Laboratory test 12/06/2003 [facility] (Do not Use) TSH 1.34 uIU/ml 0.50 -6.00 [place] [address] [phone] Laboratory test 05/12/2003 [facility] (Do not Use) TSH 1.05 uIU/ml 0.50 -6.00 [place] [address] [phone] Laboratory test 11/05/2002 [facility] (Do not Use) TSH 0.99 uIU/ml 0.50 -6.00 [place] [address] [phone] CBC 11/05/2002 [facility] (Do not Use) WBC 4.4 K/ul 4.1-10.9 [place] [address] [phone] RBC 4.59 M/ul 4.2-6.3 Hemoglobin 13.5 GM/dl 12.0-16.0 Hematocrit 39.6 % 37.0-51.0 MCV 86.3 FL 80-97 MCH 29.4 pg 26.0-32.0 MCHC 34.1 g/dL 31.0-36.0 RDW 11.8 % 11.5-14.5 Platelet Count 194 K/ul 140-440 Neutrophils 47.0 % Low 50-70 Lymphocytes 41.9 % 20-44 Monocytes 8.9 % 2-9 Eosinophil 2.1 % 0-4 Basophil 0.1 % 0-2 Absolute Neutrophils 2.1 K/ul 2.05-7.63 Absolute Lymphocytes 1.8 K/ul 0.8-4.8 Absolute Monocytes 0.4 K/ul 0.1-1.0 Absolute Eosinophils 0.1 K/ul 0.1-0.5 Absolute Basophils 0.0 K/ul Low 0.1-0.3 CBC 06/26/2002 [facility] (Do not Use) WBC 4.7 K/ul 4.1-10.9 [facility] [place] [place] [address] [phone] RBC 4.63 M/ul 4.2-6.3 Hemoglobin 13.3 GM/dl 12.0-16.0 Hematocrit 39.8 % 37.0-51.0 MCV 85.9 FL 80-97 MCH 28.6 pg 26.0-32.0 MCHC 33.3 g/dL 31.0-36.0 RDW 12.4 % 11.5-14.5 Platelet Count 218 K/ul 140-440 Neutrophils 54.9 % 50-70 Lymphocytes 37.2 % 20-44 Monocytes 7.0 % 2-9 Eosinophil 0.6 % 0-4 Basophil 0.3 % 0-2 Absolute Neutrophils 2.7 K/ul 2.05-7.63 Absolute Lymphocytes 1.7 K/ul 0.8-4.8 Absolute Monocytes 0.3 K/ul 0.1-1.0 Absolute Eosinophils 0.0 K/ul Low 0.1-0.5 Absolute Basophils 0.0 K/ul Low 0.1-0.3 Laboratory test 06/26/2002 [facility] (Do not Use) Esr PENDING MM/HR 0- 20 finding [facility] [place] [address] [phone] TSH PENDING uIU/ml 0.50-6.00 CMP 06/26/2002 [facility] (Do not Use) Sodium 141 mmol/L 137-145 [facility] [place] [address] [phone] Potassium 4.4 mmol/L 3.6-5.0 Chloride 106 mmol/L 98-107 Carbon Dioxide 25 mmol/L 22-30 Glucose 93 mg/dL 65-105 BUN 6 mg/dL Low 7-18 Creatinine, Serum 0.5 mg/dL Low 0.7-1.2 BUN/CR Ratio 11.5 Ratio Low 12-20 Calcium 9.4 mg/dL 8.7-10.5 Total Protein 7.3 g/dL 6.3-8.2 Albumin 4.2 g/dL 3.5-5.0 Globulin 3.1 g/dL 2.7-4.3 A/G Ratio 1.3 1.0-2.2 Total Bilirubin 0.4 mg/dL 0.2-1.3 Ast 26 U/L 14-36 Alt 36 U/L 9-52 Alkaline Phosphatase 66 U/L 38-126 Laboratory test 06/26/2002 [facility] (Do not Use) Catherine Screen NEGATIVE finding [facility] [place] [address] [phone] CBC 12/09/2001 [facility] (Do not Use) WBC 4.8 K/ul 4.1-10.9 [place] [address] [phone] RBC 4.42 M/ul 4.2-6.3 Hemoglobin 13.3 GM/dl 12.0-16.0 Hematocrit 37.7 % 37.0-51.0 MCV 85.3 FL 80-97 MCH 30.2 pg 26.0-32.0 MCHC 35.3 g/dL 31.0-36.0 RDW 12.3 % 11.5-14.5 Platelet Count 222 K/ul 140-440 Neutrophils 56.5 % 50-70 Lymphocytes 33.5 % 20-44 Monocytes 8.6 % 2-9 Eosinophil 0.6 % 0-4 Basophil 0.8 % 0-2 Absolute Neutrophils 2.8 K/ul 2.05-7.63 Absolute Lymphocytes 1.6 K/ul 0.8-4.8 Absolute Monocytes 0.4 K/ul 0.1-1.0 Absolute Eosinophils 0.0 K/ul Low 0.1-0.5 Absolute Basophils 0.0 K/ul Low 0.1-0.3 CMP 11/19/2001 [facility] (Do not Use) Sodium 145. mmol/L 137-145 [address] [place] [address] [phone] Potassium 4.6 mmol/L 3.6-5.0 Chloride 107. mmol/L 98-107 Carbon Dioxide 24. mmol/L 22-30 Glucose 101. mg/dL 65-105 BUN 9. mg/dL 7-18 Creatinine, Serum .7 mg/dL 0.7-1.2 BUN/CR Ratio 12.7 Ratio 12-20 Calcium 10.1 mg/dL 8.7-10.5 Total Protein 7.9 g/dL 6.3-8.2 Albumin 4.4 g/dL 3.5-5.0 Globulin 3.5 g/dL 2.7-4.3 A/G Ratio 1.2 1.0-2.2 Total Bilirubin .3 mg/dL 0.2-1.3 Ast 18. U/L 14-36 Alt 24. U/L 9-52 Alkaline Phosphatase 52. U/L 38-126 Lipid Panel 11/19/2001 [facility] (Do not Use) Cholesterol 209. mg/dL High 50-199 44 [facility] [place] [address] [phone] VLDL Cholesterol 20. mg/dL 45 Triglycerides 100. mg/dL 30-249 HDL Cholesterol 58. mg/dL 29-86 LDL(Calc) 131. mg/dL High 20-129 Chol/HDL Ratio 3.58 46 CBC 11/19/2001 [facility] (Do not Use) WBC 3.3 K/ul Low 4.1-10.9 [facility] [place] [address] [phone] RBC 4.80 M/ul 4.2-6.3 Hemoglobin 13.8 GM/dl 12.0-16.0 Hematocrit 40.9 % 37.0-51.0 MCV 85.2 FL 80-97 MCH 28.7 pg 26.0-32.0 MCHC 33.7 g/dL 31.0-36.0 RDW 12.6 % 11.5-14.5 Platelet Count 214 K/ul 140-440 Neutrophils 54.8 % 50-70 Lymphocytes 37.3 % 20-44 Monocytes 6.8 % 2-9 Eosinophil 0.9 % 0-4 Basophil 0.2 % 0-2 Absolute Neutrophils 1.9 K/ul Low 2.05-7.63 Absolute Lymphocytes 1.2 K/ul 0.8-4.8 Absolute Monocytes 0.2 K/ul 0.1-1.0 Absolute Eosinophils 0.0 K/ul Low 0.1-0.5 Absolute Basophils 0.0 K/ul Low 0.1-0.3 Laboratory test 11/19/2001 [facility] (Do not Use) TSH 0.65 uIU/ml 0.47 -6.90 [address] [place] [address] [phone] Laboratory test 10/30/2001 [facility] (Do not Use) Vitamin B12 326 pg/mL [phone] [place] [address] [phone] CBC 10/27/2001 [facility] (Do not Use) WBC 5.0 K/ul 4.1-10.9 [place] [address] [phone] RBC 4.91 M/ul 4.2-6.3 Hemoglobin 14.0 GM/dl 12.0-16.0 Hematocrit 42.1 % 37.0-51.0 MCV 85.7 FL 80-97 MCH 28.5 pg 26.0-32.0 MCHC 33.3 g/dL 31.0-36.0 RDW 12.0 % 11.5-14.5 Platelet Count 273 K/ul 140-440 Neutrophils 58.5 % 50-70 Lymphocytes 29.8 % 20-44 Monocytes 10.1 % High 2-9 Eosinophil 1.2 % 0-4 Basophil 0.4 % 0-2 Absolute Neutrophils 2.9 K/ul 2.05-7.63 Absolute Lymphocytes 1.5 K/ul 0.8-4.8 Absolute Monocytes 0.5 K/ul 0.1-1.0 Absolute Eosinophils 0.1 K/ul 0.1-0.5 Absolute Basophils 0.0 K/ul Low 0.1-0.3 Laboratory test 10/27/2001 [facility] (Do not Use) Ferritin 64.5 ng/ml 5-146 [place] [address] [phone] Esr 2 MM/HR 0-20 1 This sample is drawn by:kd/gn 2 Updated reference range on new analyzer 3 6.1 No visible hemolysis. 4 Updated reference range on new analyzer 5 Concerning GFR Guidelines for Americans: Normal function or mild renal disease, if clinically at risk: >/=60 mL/min Moderately decreased: 30-59 Severely decreased: 15-29 Renal failure: <15 6 Concerning GFR Guidelines: Normal function or mild renal disease, if clinically at risk: >/=60 mL/min Moderately decreased: 30-59 Severely decreased: 15-29 Renal failure: <15 Glomerular Filtration Rate (GFR) is estimated based on the MDRD equation, which assumes a steady state for creatinine as recommended by the National Kidney Disease Education Program in conjunction with the National Institutes of Health and the National Kidney Foundation. Clinical conditions in which it may be necessary to measure GFR by using clearance methods include extremes of age and body size, severe malnutrition or obesity, diseases of skeletal muscle, paraplegia or quadriplegia, vegetarian diet, rapidly changing kidney function, and calculation of the dose of potentially toxic drugs that are excreted by the kidneys. 7 Updated reference range on new analyzer 8 Per NCEP ATP III Guidelines: Results lower than 40 mg/dL are suggestive of increased risk for coronary artery disease. Results > or=to 60 mg/dL are considered a negative risk factor. 9 Per NCEP ATP III Guidelines: Normal Population <130 Patients with medical conditions: CHD/DM Optimal: <100 Borderline high: 130-159 High: 160-189 Very high: >189 10 A Negative serologic test for Lyme Disease indicates no serologic evidence of infection with B burgdorferi at the time this specimen was collected. A repeat specimen should be collected in 2 to 4 weeks if clinically indicated. Unless otherwise specified, testing performed by [facility] [employer] [place] [address] [place] [address] 11 This sample is drawn by:WALI/MOE 12 Concerning GFR Guidelines for Americans: Normal function or mild renal disease, if clinically at risk: >/=60 mL/min Moderately decreased: 30-59 Severely decreased: 15-29 Renal failure: <15 13 Concerning GFR Guidelines: Normal function or mild renal disease, if clinically at risk: >/=60 mL/min Moderately decreased: 30-59 Severely decreased: 15-29 Renal failure: <15 Glomerular Filtration Rate (GFR) is estimated based on the MDRD equation, which assumes a steady state for creatinine as recommended by the National Kidney Disease Education Program in conjunction with the National Institutes of Health and the National Kidney Foundation. Clinical conditions in which it may be necessary to measure GFR by using clearance methods include extremes of age and body size, severe malnutrition or obesity, diseases of skeletal muscle, paraplegia or quadriplegia, vegetarian diet, rapidly changing kidney function, and calculation of the dose of potentially toxic drugs that are excreted by the kidneys. 14 [facility] [place] [address] [place] [address] Digene Hybrid Capture II HPV Test Accession Number [id number] Specimen(s) Received A: Digene SP Vaginal/ Cervical/ Endocervical Pap Smear - One Vial Other Case Numbers: [id number] Diagnosis RISK GROUPS HPV TYPES RESULTS High Risk (16, 18, 31, 33, 35, 39, 45, 51, 52, 56, 58, 59, 68) NEGATIVE Comments The performance characteristics of the SurePath cell pellet specimen tested for this assay were validated by [employer] and licensed for use by the [facility] Department of [facility]. This test has not been licensed by the FDA and the result is not intended to be used as the sole means for clinical diagnosis or patient management. Negative results do not rule out the presence of disease. Reported: 03/23/2011 15:49 Electronically Signed Out By Marleni Sosa ssa 15 [employer] [facility]. [address] [place] [address] GYNECOLOGIC CYTOLOGY REPORT Accession Number: [id number] Source of Specimen(s): A: SurePath Vaginal/ Cervical/ Endocervical Pap Smear - One Vial Clinical Diagnosis and History: Date of Last Menstrual Period: None Provided Other Clinical Conditions: DIGENE HPV ASSAY REQUESTED Specimen Adequacy Satisfactory for evaluation Presence of endocervical/transformation zone component General Categorization Negative for intraepithelial lesion or malignancy Interpretation NEGATIVE FOR INTRAEPITHELIAL LESION OR MALIGNANCY Recommendations HPV testing will be performed via Digene Hybrid Capture II and a separate report will be issued. Reported: 03/22/2011 Electronically Signed Out By Jyoti Hawk SCT(ASCP)([facility]) [facility] jc Unless otherwise specified, testing performed by [employer] [address] [address] [place] [address] 16 Unless otherwise specified, testing performed by [employer] [facility]. [address] [place] [id number] 17 LAB DRAW [place] 18 Unless otherwise specified, testing performed by [facility] [employer] [address] [place] [address] 19 The difference between the most recent result of 8.7 and the current result of 9.3 exceeds the absolute delta value of 0.3 as defined for this test. 20 Concerning GFR GUIDELINES: Normal Function or Mild Renal Disease, if clinically at risk: >/=60mL/min Moderately decreased: 30-59 Severely decreased: 15-29 Renal Failure: <15 Glomerular Filtration Rate (GFR) is estimated based on the MDRD equation, which assumes a steady state for creatinine as recommended by the National Kidney Disease Education Program in conjunction with the National Institutes of Health and the National Kidney Foundation. Clinical conditions in which it may be necessary to measure GFR by using clearance methods include extremes of age and body size, severe malnutrition or obesity, diseases of skeletal muscle, paraplegia or quadriplegia, vegetarian diet, rapidly changing kidney function, and calculation of the dose of potentially toxic drugs that are excreted by the kidneys. 21 Concerning GFR GUIDELINES: Normal Function or Mild Renal Disease, if clinically at risk: >/=60mL/min Moderately decreased: 30-59 Severely decreased: 15-29 Renal Failure: <15 22 [employer] [facility] [employer] [facility]. [address] [place] [id number] GYNECOLOGIC CYTOLOGY REPORT Accession Number: [id number] Source of Specimen(s): A: SurePath Endocervical Pap Smear - One Vial Clinical Diagnosis and History: Date of Last Menstrual Period: 02/12/10 Other Clinical Conditions: Last Pap Smear: 2007 wnl Specimen Adequacy Satisfactory for evaluation Presence of endocervical/transformation zone component General Categorization Negative for intraepithelial lesion or malignancy Interpretation NEGATIVE FOR INTRAEPITHELIAL LESION OR MALIGNANCY Reported: 02/23/2010 Electronically Signed Out By [employer](ASCP) [facility] lisa Unless otherwise specified, testing performed by [facility] [employer] [address] [place] [id number] 23 LAB DRAW [place] 24 < 0.90 NEGATIVE > 0.89 AND < 1.09 INDETERMINATE > 1.09 POSITIVE Unless otherwise specified, testing performed by [facility] [facility] [address] [place] [id number] 25 This sample is drawn by:MOE REAGAN 26 LAB DRAW KSL[place] 27 REFERENCE RANGE FOR FOLATE: GREATER THAN 6.6 ng/mL 28 FASTING This sample is drawn by:MOE REAGAN 29 PER NCEP ATP III GUIDELINES: RESULTS LOWER THAN 40 MG/DL ARE SUGGESTIVE OF INCREASED RISK FOR CORONARY ARTERY DISEASE. RESULTS > OR=TO 60 MG/DL ARE CONSIDERED A NEGATIVE RISK FACTOR. 30 INTERPRETATION OF CHOL-HDL RATIO CHD RISK FEMALE MALE VERY HIGH >8.3 >14.3 HIGH 5.6 - 8.3 6.7 - 14.3 AVERAGE 3.7 - 5.6 4.0 - 6.7 BELOW AVERAGE 2.5 - 3.7 2.7 - 4.0 PROTECTED <2.5 <2.7 31 PER NCEP ATP III GUIDELINES: OPTIMAL: <100 NEAR OPTIMAL: 100 - 129 BORDERLINE HIGH: 130 - 159 HIGH: 160 - 189 VERY HIGH: >189 32 ELECTROLYTES CONFIRMED- MFO 33 The difference between the most recent result of 9.3 and the current result of 8.7 exceeds the absolute delta value of 0.3 as defined for this test. 34 Concerning GFR GUIDELINES: Normal Function or Mild Renal Disease, if clinically at risk: >/=60mL/min Moderately decreased: 30-59 Severely decreased: 15-29 Renal Failure: <15 Glomerular Filtration Rate (GFR) is estimated based on the MDRD equation, which assumes a steady state for creatinine as recommended by the National Kidney Disease Education Program in conjunction with the National Institutes of Health and the National Kidney Foundation. Clinical conditions in which it may be necessary to measure GFR by using clearance methods include extremes of age and body size, severe malnutrition or obesity, diseases of skeletal muscle, paraplegia or quadriplegia, vegetarian diet, rapidly changing kidney function, and calculation of the dose of potentially toxic drugs that are excreted by the kidneys. 35 Concerning GFR GUIDELINES: Normal Function or Mild Renal Disease, if clinically at risk: >/=60mL/min Moderately decreased: 30-59 Severely decreased: 15-29 Renal Failure: <15 36 Concerning GFR GUIDELINES: Normal Function or Mild Renal Disease, if clinically at risk: >/=60mL/min Moderately decreased: 30-59 Severely decreased: 15-29 Renal Failure: <15 Glomerular Filtration Rate (GFR) is estimated based on the MDRD equation, which assumes a steady state for creatinine as recommended by the National Kidney Disease Education Program in conjunction with the National Institutes of Health and the National Kidney Foundation. Clinical conditions in which it may be necessary to measure GFR by using clearance methods include extremes of age and body size, severe malnutrition or obesity, diseases of skeletal muscle, paraplegia or quadriplegia, vegetarian diet, rapidly changing kidney function, and calculation of the dose of potentially toxic drugs that are excreted by the kidneys. 37 Concerning GFR GUIDELINES: Normal Function or Mild Renal Disease, if clinically at risk: >/=60mL/min Moderately decreased: 30-59 Severely decreased: 15-29 Renal Failure: <15 38 May indicate a current or previous infection. 39 May indicate a current or previous infection. 40 Concerning GFR GUIDELINES: Normal Function or Mild Renal Disease, if clinically at risk: >/=60mL/min Moderately decreased: 30-59 Severely decreased: 15-29 Renal Failure: <15 Glomerular Filtration Rate (GFR) is estimated based on the MDRD equation, which assumes a steady state for creatinine as recommended by the National Kidney Disease Education Program in conjunction with the National Institutes of Health and the National Kidney Foundation. Clinical conditions in which it may be necessary to measure GFR by using clearance methods include extremes of age and body size, severe malnutrition or obesity, diseases of skeletal muscle, paraplegia or quadriplegia, vegetarian diet, rapidly changing kidney function, and calculation of the dose of potentially toxic drugs that are excreted by the kidneys. 41 Concerning GFR GUIDELINES: Normal Function or Mild Renal Disease, if clinically at risk: >/=60mL/min Moderately decreased: 30-59 Severely decreased: 15-29 Renal Failure: <15 42 SEE REFERENCE LAB REPORT 43 PENDING PENDING PENDING PENDING PENDING PENDING PENDING PENDING PENDING PENDING PENDING PENDING PENDING PENDING PENDING PENDING PENDING 44 PENDING PENDING PENDING PENDING PENDING 45 PENDING 46 Normal Range: Male: <4.98 Female: <4.45 47 PENDING Procedures Date Code Description Status 05/07/2016 80852 Measure Blood Oxygen Level Single Determination Completed 01/06/2014 19395 Measure Blood Oxygen Level Single Determination Completed 08/07/2011 90812 Measure Blood Oxygen Level Single Determination Completed 07/09/2011 39932 Measure Blood Oxygen Level Single Determination Completed 04/10/2011 73725 Admin Of Inj (Therapeutic Phrophylactic Or Diagnostic Subq Completed Inj 03/20/2011 02579 Admin Of Inj (Therapeutic Phrophylactic Or Diagnostic Subq Completed Inj 11/09/2010 09829 Measure Blood Oxygen Level Single Determination Completed 09/18/2010 29786 Admin Of Inj (Therapeutic Phrophylactic Or Diagnostic Subq Completed Inj 08/11/2010 61320 Admin Of Inj (Therapeutic Phrophylactic Or Diagnostic Subq Completed Inj 07/03/2010 48906 Admin Of Inj (Therapeutic Phrophylactic Or Diagnostic Subq Completed Inj 06/29/2010 18009 Admin Of Inj (Therapeutic Phrophylactic Or Diagnostic Subq Completed Inj 05/24/2010 46652 Admin Of Inj (Therapeutic Phrophylactic Or Diagnostic Subq Completed Inj 04/12/2010 93989 Admin Of Inj (Therapeutic Phrophylactic Or Diagnostic Subq Completed Inj 03/24/2010 77578 Admin Of Inj (Therapeutic Phrophylactic Or Diagnostic Subq Completed Inj 01/18/2010 96309 Admin Of Inj (Therapeutic Phrophylactic Or Diagnostic Subq Completed Inj 12/15/2009 18428 Admin Of Inj (Therapeutic Phrophylactic Or Diagnostic Subq Completed Inj 12/15/2009 43029 Admin Of Inj (Therapeutic,Prophylactic Or Diagnostic Subq Completed Or Intr 11/17/2009 97467 Admin Of Inj (Therapeutic Phrophylactic Or Diagnostic Subq Completed Inj 11/17/2009 09989 Admin Of Inj (Therapeutic,Prophylactic Or Diagnostic Subq Completed Or Intr 11/17/2009 48664 Admin Of Inj (Therapeutic,Prophylactic Or Diagnostic Subq Completed Or Intr 11/08/2009 95534 Admin Of Inj (Therapeutic Phrophylactic Or Diagnostic Subq Completed Inj 11/08/2009 58164 Admin Of Inj (Therapeutic,Prophylactic Or Diagnostic Subq Completed Or Intr 10/24/2009 67542 Admin Of Inj (Therapeutic,Prophylactic Or Diagnostic Subq Completed Or Intr 10/24/2009 02869 Admin Of Inj (Therapeutic Phrophylactic Or Diagnostic Subq Completed Inj 10/17/2009 45020 Admin Of Inj (Therapeutic Phrophylactic Or Diagnostic Subq Completed Inj 10/17/2009 45507 Admin Of Inj (Therapeutic,Prophylactic Or Diagnostic Subq Completed Or Intr 10/11/2009 14008 Admin Of Inj (Therapeutic Phrophylactic Or Diagnostic Subq Completed Inj 10/11/2009 20063 Admin Of Inj (Therapeutic,Prophylactic Or Diagnostic Subq Completed Or Intr 10/04/2009 72612 Admin Of Inj (Therapeutic Phrophylactic Or Diagnostic Subq Completed Inj 10/04/2009 67728 Admin Of Inj (Therapeutic,Prophylactic Or Diagnostic Subq Completed Or Intr 09/27/2009 59969 Admin Of Inj (Therapeutic Phrophylactic Or Diagnostic Subq Completed Inj 09/27/2009 33558 Admin Of Inj (Therapeutic,Prophylactic Or Diagnostic Subq Completed Or Intr 09/15/2009 80669 Admin Of Inj (Therapeutic Phrophylactic Or Diagnostic Subq Completed Inj 09/15/2009 20982 Admin Of Inj (Therapeutic,Prophylactic Or Diagnostic Subq Completed Or Intr 08/16/2009 78047 Admin Of Inj (Therapeutic,Prophylactic Or Diagnostic Subq Completed Or Intr 08/16/2009 11260 Admin Of Inj (Therapeutic Phrophylactic Or Diagnostic Subq Completed Inj 08/09/2009 79396 Admin Of Inj (Therapeutic Phrophylactic Or Diagnostic Subq Completed Inj 08/09/2009 46724 Admin Of Inj (Therapeutic,Prophylactic Or Diagnostic Subq Completed Or Intr 08/02/2009 80468 Admin Of Inj (Therapeutic Phrophylactic Or Diagnostic Subq Completed Inj 08/02/2009 45926 Admin Of Inj (Therapeutic,Prophylactic Or Diagnostic Subq Completed Or Intr 07/26/2009 41260 Admin Of Inj (Therapeutic Phrophylactic Or Diagnostic Subq Completed Inj 07/26/2009 64421 Admin Of Inj (Therapeutic,Prophylactic Or Diagnostic Subq Completed Or Intr 07/19/2009 96249 Admin Of Inj (Therapeutic Phrophylactic Or Diagnostic Subq Completed Inj 05/19/2009 10688 Admin Of Inj (Therapeutic Phrophylactic Or Diagnostic Subq Completed Inj 04/07/2007 28842 Remove Skin Tags Up To 15 Completed 01/04/2004 46263 Electrocardiogram Complete Completed Encounters Type Date Location Provider Dx Diagnosis Office Visit 05/27/2018 Danni Ayers, Z02.89 Encounter for other 11:30a N.P. administrative examinations Z23 Encounter for immunization Z11.1 Encounter for screening for respiratory tuberculosis Office Visit 11/28/2017 10:30a Danni Ayers, J20.9 Acute bronchitis, N.P. unspecified Office Visit 08/27/2017 3:30p Danni Ayers, H92.02 Otalgia, LEFT ear N.P. R05 Cough Office Visit 04/12/2017 10:45a Danni Ayers, N76.0 Acute vaginitis N.P. Office Visit 04/08/2017 9:45a Danni Ayers, J01.00 Acute maxillary N.P. sinusitis, unspecified Office Visit 02/26/2017 3:00p Danni Ayers, R53.83 Other fatigue N.P. E66.3 Overweight D51.9 Vitamin B12 deficiency anemia, unspecified Z13.220 Encounter for screening for lipoid disorders Office Visit 06/07/2016 10:15a Danni Ayers, F41.9 Anxiety disorder, N.P. unspecified H92.02 Otalgia, LEFT ear Office Visit 05/07/2016 11:15a Danni Ayers, J01.00 Acute maxillary N.P. sinusitis, unspecified R05 Cough Office Visit 01/25/2016 10:30a Danni Ayers, J01.00 Acute maxillary N.P. sinusitis, unspecified Office Visit 01/03/2016 8:30a Danni Ayers, F33.1 Major depressive N.P. disorder, recurrent, moderate Office Visit 07/12/2015 1:45p Danni Ayers, K08.8 Other specified N.P. disorders of teeth and supporting structures Office Visit 05/20/2015 10:15a Danni Ayers, 346.00 Migraine Classical N.P. W/O Intractable 278.01 Obesity Morbid Office Visit 02/21/2015 8:00a Danni Ayers, 780.79 Malaise And N.P. Fatigue Other 783.1 Weight Gain Abnormal Office Visit 01/04/2015 11:30a Danni Ayers, 782.9 Skin & Integumentary N.P. Tissue Other Symptoms Office Visit 11/01/2014 9:45a Danni Ayers, 382.00 Otitis Media N.P. Suppurative Acute 784.1 Throat Pain Office Visit 07/06/2014 1:45p Danni Ayers, 300.02 Anxiety Disorder N.P. Generalized Office Visit 06/16/2014 10:15a Danni Ayers, 300.02 Anxiety Disorder N.P. Generalized Office Visit 06/08/2014 1:45p Danni Ayers, 709.9 Skin & Subcutaneous N.P. Tissue Disorders Unspec Office Visit 01/06/2014 10:00a Danni Ayers, 461.0 Sinusitis Acute N.P. Maxillary 786.2 Cough Office Visit 12/28/2013 10:00a Danni Ayers, 924.9 Contusion Unspec N.P. Site 723.1 Cervicalgia Office Visit 12/18/2013 9:30a Danni Ayers, N.P. 723.1 Cervicalgia 924.9 Contusion Unspec Site Office Visit 11/30/2013 1:15p Danni Ayers, N.P. 723.1 Cervicalgia 719.43 Pain Joint Forearm Office Visit 11/17/2013 11:00a Danni Ayers, N.P. 278.00 Obesity Unspec 784.0 Headache 525.9 Teeth And Supporting Structures Disorders Unspec 784.0 Headache Office Visit 11/05/2013 10:00a Danni Ayers, N.P. 723.1 Cervicalgia 924.9 Contusion Unspec Site Office Visit 10/23/2013 10:45a Danni Ayers, N.P. 723.1 Cervicalgia 719.43 Pain Joint Forearm Office Visit 10/15/2013 10:00a Danni Ayers, 924.9 Contusion Unspec N.P. Site 723.1 Cervicalgia Office Visit 07/22/2013 10:45a Danni Ayers, N.P. 281.0 Pernicious Anemia 455.3 Hemorrhoids External W/O Complication Office Visit 07/01/2013 10:45a Danni Ayers, 525.8 Teeth And Supporting N.P. Structures Disorders Other Spec Office Visit 03/20/2012 10:15a Danni Ayers, 626.0 Menstruation Absence N.P. Office Visit 03/04/2012 9:15a Danni Ayers, 719.43 Pain Joint Forearm N.P. Office Visit 08/24/2011 9:15a Danni Ayers, 300.02 Anxiety Disorder N.P. Generalized 296.32 Depressive Disorder Major Recurrent Moderate Office Visit 08/17/2011 8:30a Danni Ayers, 300.02 Anxiety Disorder N.P. Generalized Office Visit 08/07/2011 11:30a Danni Ayers, 995.3 Allergy Unspec N.P. 300.02 Anxiety Disorder Generalized Office Visit 07/09/2011 1:30p Danni Ayres, N.P. 466.0 Bronchitis Acute Office Visit 03/20/2011 9:15a Danni Ayers, N.P. 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 Office Visit 02/13/2011 11:00a Danni Ayers, 719.43 Pain Joint Forearm N.P. Office Visit 02/06/2011 1:30p Danni Ayers, 719.43 Pain Joint Forearm N.P. Office Visit 01/15/2011 2:15p Danni Ayers, 719.43 Pain Joint Forearm N.P. 719.43 Pain Joint Forearm Office Visit 11/09/2010 8:00a Danni Ayers, 382.00 Otitis Media N.P. Suppurative Acute 466.0 Bronchitis Acute Office Visit 10/17/2010 11:45a Eulalia Beaulieu, 535.50 Gastritis & Danni, N.P. Gastroduodenitis Unspec W/O Hemorrhage Office Visit 09/18/2010 11:30a Eulalia Beaulieu, 278.00 Obesity Unspec [place], N.P. 300.02 Anxiety Disorder Generalized 281.0 Pernicious Anemia Office Visit 07/03/2010 1:30p Danni Ayers, 346.00 Migraine Classical N.P. W/O Intractable Office Visit 06/29/2010 11:45a Danni Ayers, 346.00 Migraine Classical N.P. W/O Intractable Office Visit 04/12/2010 3:45p Danni Ayers, 278.00 Obesity Unspec N.P. 281.0 Pernicious Anemia Office Visit 04/07/2010 10:00a Danni Ayers N.P. 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 Examination Office Visit 02/08/2010 12:15p Danni Ayers, 883.1 Open Wound Finger(S) N.P. Complicated Office Visit 02/07/2010 1:30p Norman Liriano, 883.1 Open Wound Finger(S) MD Complicated 535.50 Gastritis & Gastroduodenitis Unspec W/O Hemorrhage V06.5 Tetanus Diphtheria (DT) Office Visit 12/23/2009 8:45a Danni Ayers, N.P. 784.0 Headache Office Visit 11/17/2009 9:15a Danni Ayers N.P. 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 281.0 Pernicious Anemia 529.0 Glossitis Tongue Office Visit 07/06/2009 12:15p Danni Ayers, N.P. 529.0 Glossitis Tongue 784.1 Throat Pain 787.03 Vomiting Alone Office Visit 05/19/2009 3:10p Norman Liriano, 692.79 Dermatitis Due To MD Solar Radiation Other Office Visit 12/13/2008 2:15p Danni Ayers, 278.00 Obesity Unspec N.P. 883.0 Open Wound Finger(S) W/O Complication 873.0 Open Wound Scalp W/O Complication Office Visit 11/26/2008 8:00a Danni Ayers, 296.32 Depressive Disorder N.P. Major Recurrent Moderate 278.00 Obesity Unspec 300.02 Anxiety Disorder Generalized 787.01 Nausea W/ Vomiting Office Visit 11/12/2008 8:15a Danni Ayers, N.P. 278.00 Obesity Unspec 296.32 Depressive Disorder Major Recurrent Moderate 300.02 Anxiety Disorder Generalized Office Visit 07/12/2008 1:30p Danni Ayers, 465.9 URI Upper N.P. Respiratory Infections Acute Unspec Sites 558.9 Gastroenteritis & Colitis Noninfectious Other Office Visit 05/31/2008 3:30p Danni Ayers, N.P. 278.00 Obesity Unspec 525.9 Teeth And Supporting Structures Disorders Unspec V58.69 Medications Group Counselor (Current) Use Encounter Office Visit 05/13/2008 3:30p Danni Ayers, N.P. 278.00 Obesity Unspec V58.69 Medications Custodial (Current) Use Encounter Office Visit 04/12/2008 3:00p Danni Ayers, N.P. 278.00 Obesity Unspec 525.9 Teeth And Supporting Structures Disorders Unspec Office Visit 04/02/2008 9:30a Danni Ayers, 382.00 Otitis Media N.P. Suppurative Acute Office Visit 12/18/2007 1:30p Danni Ayers, 466.0 Bronchitis Acute N.P. 780.79 Malaise And Fatigue Other Office Visit 10/20/2007 1:15p Danni Ayers, N.P. 466.0 Bronchitis Acute 784.0 Headache Office Visit 08/29/2007 9:15a Danni Ayers, 558.9 Gastroenteritis & N.P. Colitis Noninfectious Other 787.01 Nausea W/ Vomiting Office Visit 08/12/2007 8:30a Danni Ayers, N.P. 724.5 Backache Unspec 724.70 Coccyx Disorder Unspec Office Visit 08/04/2007 10:45a Danni Ayers, 296.32 Depressive Disorder N.P. Major Recurrent Moderate 346.00 Migraine Classical W/O Intractable Office Visit 06/30/2007 10:15a Danni Ayers, 724.5 Backache Unspec N.P. Office Visit 04/14/2007 3:15p Danni Ayers, 709.8 Skin Disorders Other N.P. Spec Office Visit 03/13/2007 8:00a Danni Ayers, 782.1 Rash & Other Nonspec N.P. Skin Eruption Office Visit 11/14/2006 1:00p Danni Ayers, 626.4 Irregular Menstrual N.P. Cycle 789.9 Abdomen & Pelvis Symptoms Other Office Visit 10/17/2006 8:00a Danni Ayers N.P. 466.0 Bronchitis Acute Office Visit 08/08/2006 1:00p Danni Ayers N.P. 466.0 Bronchitis Acute 111.0 Pityriasis Versicolor Office Visit 05/16/2006 4:00p Danni Ayers, V72.31 Routine Sludge Filtration Operator N.P. Examination 626.2 Menstruation Excessive Or Frequent Office Visit 01/03/2006 1:45p Danni Ayers, 626.4 Irregular Menstrual N.P. Cycle 389.8 Hearing Loss Other Spec Forms Office Visit 12/13/2005 3:00p Danni Ayers N.P. 462 Pharyngitis Acute 780.79 Malaise And Fatigue Other 079.99 Viral Infection Unspec 785.6 Lymph Nodes Enlargement Office Visit 08/28/2005 10:15a Danni Ayers, V01.6 Venereal Diseases N.P. Contact W/ Exposure To Office Visit 05/03/2005 2:00p Danni Ayers, 692.71 Sunburn N.P. 709.8 Skin Disorders Other Spec Office Visit 03/30/2005 10:15a Danni Ayers, 626.2 Menstruation N.P. Excessive Or Frequent 296.32 Depressive Disorder Major Recurrent Moderate Office Visit 02/19/2005 10:00a Danni Ayers, 789.00 Pain Abdominal N.P. Unspec Site Office Visit 02/12/2005 11:30a Danni Ayers, 789.00 Pain Abdominal N.P. Unspec Site 530.11 Esophagitis Reflux Office Visit 01/02/2005 2:30p Danni Ayers, 296.32 Depressive Disorder N.P. Major Recurrent Moderate 698.9 Pruritic Disorder Unspec 111.8 Dermatomycosis Other Spec Office Visit 10/19/2004 1:00p Danni Ayers, 300.02 Anxiety Disorder N.P. Generalized 530.11 Esophagitis Reflux 525.9 Teeth And Supporting Structures Disorders Unspec Office Visit 07/19/2004 1:00p Danni Ayers, 530.11 Esophagitis Reflux N.P. 300.02 Anxiety Disorder Generalized Office Visit 07/05/2004 2:00p Danni Ayers, N.P. 719.46 Pain Joint Lower Leg 780.79 Malaise And Fatigue Other 530.11 Esophagitis Reflux 300.02 Anxiety Disorder Generalized Office Visit 03/28/2004 11:30a Danni Ayers, V72.3 Examination N.P. Gynecological Office Visit 01/04/2004 1:45p Danni Ayers, 785.1 Palpitations N.P. 786.51 Pain Precordial Office Visit 12/02/2003 4:00p Danni Ayers, 296.32 Depressive Disorder N.P. Major Recurrent Moderate 780.79 Malaise And Fatigue Other 461.0 Sinusitis Acute Maxillary 783.1 Weight Gain Abnormal Office Visit 10/01/2003 9:15a Danni Ayers, 382.00 Otitis Media N.P. Suppurative Acute Office Visit 09/08/2003 1:00p Danni Ayers, 300.02 Anxiety Disorder N.P. Generalized 296.32 Depressive Disorder Major Recurrent Moderate 465.9 URI Upper Respiratory Infections Acute Unspec Sites V04.81 Need For Prophylactic Vaccination & Inoculation/Influenza Office Visit 07/27/2003 1:30p Danni Ayers, 296.32 Depressive Disorder N.P. Major Recurrent Moderate 054.9 Herpes Simplex W/O Complication 681.02 Onychia & Paronychia Finger Office Visit 05/10/2003 3:45p Danni Ayers, 616.10 Vaginitis & N.P. Vulvovaginitis Unspec Office Visit 04/21/2003 11:15a Danni Ayers, V72.3 Examination N.P. Gynecological Office Visit 03/25/2003 10:00a Itzel Singleton 786.50 Pain Chest Unspec MD Audra 620.2 Ovarian Cyst Other & Unspec Office Visit 02/01/2003 3:45p Danni Ayers, 372.30 Conjuctivitis Unspec N.P. 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 Office Visit 09/15/2002 9:15a Too Conroy MD 372.30 Conjuctivitis Unspec Office Visit 09/08/2002 9:15a Too Conroy MD 372.30 Conjuctivitis Unspec Office Visit 07/28/2002 8:40a Itzel Singleton 789.02 Pain Abdominal LEFT MD Audra Upper Quadrant 786.50 Pain Chest Unspec Office Visit 06/26/2002 11:30a Itzel Singleton MD 780.79 Malaise And Fatigue Other 782.7 Ecchymoses Spontaneous Office Visit 03/06/2002 4:00p Too Conroy MD 461.0 Sinusitis Acute Maxillary Office Visit 03/05/2002 10:15a Cami Sutton FNP 682.0 Cellulitis & Abscess Face Office Visit 02/17/2002 1:45p Cami Sutton FNP V72.3 Examination Gynecological V20.2 Exam Infant Or Child Routine Health Check Office Visit 12/19/2001 3:00p Too Conroy MD 786.3 Hemoptysis 789.02 Pain Abdominal LEFT Upper Quadrant Office Visit 11/21/2001 3:50p Itzel Singleton MD Office Visit 11/14/2001 3:20p Itzel Singleton MD Office Visit 10/27/2001 10:30a Cami Sutton FNP Office Visit 2001 2:45p Too Conroy MD Office Visit 08/18/2001 10:30a Cami Sutton FNP Office Visit 11/26/2000 3:00p Too Conroy MD Plan of Treatment 11/25/2018 - Danni Beaulieu, N.P.R51 HeadacheComments:short course [place] for severe perisstent pain. if no better 24-48h recheck in office, report increasing pain or changing [id number] Acute maxillary sinusitis, unspecifiedComments:cont augmentin and prednisone as rx'dOTC mucinex,sudafed, increase fluids, rest, [id number] Dizziness and giddinessComments:use meclizine as rx'dsafety precautions if dizzy: no driving or operating machinery or climbing laddersAllNew Medication:Hydrocodone-Acetaminophen 5-325 mg - 1-2 by mouth every 6h as needed painWork Note - no work 11/26/18
[2018-11-26] MEDS ORDERED: diPHENhydraMINE IV* 50 MG/ML 1 ml VIAL (BENADRYL) IV ONE (18:24)
[2018-11-26] MEDS ORDERED: NS 0.9% 1000 ML** 1,000 ML IV ONE (18:24)
[2018-11-26] MEDS ORDERED: Ketorolac INJ* 30 MG/ML 1 ML VIAL IV ONE (18:24)
[2018-11-26] MEDS ORDERED: PROCHLORPERAZINE INJ 5 MG/ML 2 ML VIAL IV ONE (18:30)
--- NOTE | 2018-11-26 18:44 | ED ---
Headache - HPI Summary HPI Summary: 33-year-old female with history of migraine headaches presents with complaints of headache, pain behind her right eye with blurring of her central vision, and constant vertigo that started 5 days ago. States she was evaluated at an urgent care center on 11/23/18, was diagnosed with a sinus infection, started on Augmentin twice a day 10 days, prednisone 20 mg twice a day 5 days, and meclizine 3 times a day when necessary. She was then seen in follow-up with her primary care provider on 11/25/18 and was given a prescription for hydrocodone-acetaminophen 5 mg/325 mg 1-2 tablets every 6 hours as needed for pain. Patient states that she has taken 2 doses of meclizine with the last being this morning around 9 AM as well as a single dose of the hydrocodone- acetaminophen at the same time with no relief in symptoms. Patient states his been several years she has had a migraine and that this is not her typical presentation. States her migraines typically involve a loss of vision usually in the right eye along with headache and photophobia that were usually resolves in about 2 hours after taking Excedrin. Denies fever, chills, facial droop, slurred speech, difficulty speaking, diplopia, photophobia, extremity weakness, numbness, or tingling, chest pain, palpitations, shortness of breath, abdominal pain, nausea, or vomiting. - History Of Current Complaint Chief Complaint: EDEyeProblem Stated Complaint: RIGHT EYE PAIN/BLURRY VISION Time Seen by Provider: 11/26/18 17:49 Hx Obtained From: Patient - Allergies/Home Medications Allergies/Adverse Reactions: Allergies Allergy/AdvReac Type Severity Reaction Status Date / Time No Known Allergies Allergy Verified 11/26/18 16:44 Home Medications: Home Medications Amoxicillin/Clavulanate TAB* [Augmentin TAB 875*] 875 mg PO BID 11/26/18 [ History Confirmed 11/26/18] Fluconazole 150 MG TAB* [Diflucan 150 MG TAB*] 150 mg PO WEEKLY 11/26/18 [ History Confirmed 11/26/18] Hydrocodone/Acetaminophen [Hydrocodone-Acetamin 5-325 mg] 1 - 2 tab PO Q6HR PRN 11/26/18 [History Confirmed 11/26/18] Meclizine TAB* [Antivert 12.5 TAB*] 25 mg PO TID PRN 11/26/18 [History Confirmed 11/26/18] Norgestimate-Ethinyl Estradiol [Cecil-Linyah 28 Tablet] 1 tab PO DAILY 11/26/18 [ History Confirmed 11/26/18] predniSONE TAB* [Deltasone 20 MG TAB*] 20 mg PO BID 11/26/18 [History Confirmed 11/26/18] PMH/Surg Hx/FS Hx/Imm Hx Previously Healthy: Yes Neurological History: Reports: Hx Migraine - Surgical History Surgery Procedure, Year, and Place: . Dental surgery. L knee surgery Infectious Disease History: No Infectious Disease History: Denies: Traveled Outside the [place] in Last 30 Days - Family History Known Family History: Positive: None - Social History Occupation: Employed Full-time Lives: With Family Alcohol Use: None Substance Use Type: Reports: None Smoking Status (MU): Never Smoked Tobacco Review of Systems Negative: Fever, Chills Positive: Blurred Vision. Negative: Photophobia, Diplopia, Drainage, Erythema Negative: Sore Throat, Ear Ache, Nasal Discharge Negative: Palpitations, Chest Pain Negative: Shortness Of Breath, Cough Negative: Abdominal Pain, Vomiting, Diarrhea, Nausea Positive: no symptoms reported Musculoskeletal: Negative Skin: Negative Neurological: Other - Vertigo Positive: Headache. Negative: Weakness, Paresthesia, Numbness, Syncope, Slurred Speech All Other Systems Reviewed And Are Negative: Yes Physical Exam - Summary Physical Exam Summary: GENERAL APPEARANCE: Well developed, well nourished, alert and cooperative, and appears to be in no acute distress. HEAD: Atraumatic. normocephalic. EYES: PERRL, EOM intact. Conjunctiva clear. No discharge or tearing. Vision is grossly intact. EARS: External auditory canals and tympanic membranes clear, hearing grossly intact. NOSE: Mild nasal congestion. No nasal discharge. No sinus tenderness with percussion. THROAT: Oral cavity and pharynx normal. No inflammation, swelling, exudate, or lesions. Teeth and gingiva in good general condition. NECK: Neck supple, non-tender without lymphadenopathy. CARDIAC: Normal S1 and S2. No S3, S4 or murmurs. Rhythm is regular. There is no peripheral edema, cyanosis or pallor. Extremities are warm and well perfused. Capillary refill is less than 2 seconds. Peripheral pulses intact. LUNGS: Clear to auscultation without rales, rhonchi, wheezing or diminished breath sounds. ABDOMEN: Positive bowel sounds. Soft, nondistended, nontender. No guarding or rebound. No masses or hepatosplenomegally. MUSKULOSKELETAL: ROM intact to all extremities. No joint erythema or tenderness. Normal muscular development. Normal gait. NEUROLOGICAL: CN II-XII intact. Strength and sensation symmetric and intact throughout. Reflexes 2+ throughout. Cerebellar testing normal. SKIN: Skin normal color, texture and turgor with no lesions or eruptions. Triage Information Reviewed: Yes Vital Signs On Initial Exam: Initial Vitals Temp Pulse Resp BP Pulse Ox 97.7 F 85 18 153/97 97 11/26/18 16:40 11/26/18 16:40 11/26/18 16:40 11/26/18 16:40 11/26/18 16:40 Vital Signs Reviewed: Yes Diagnostics - Vital Signs Vital Signs Temp Pulse Resp BP Pulse Ox 11/26/18 16:40 97.7 F 85 18 153/97 97 - Laboratory Result Diagrams: 11/26/18 18:38 Lab Statement: Any lab studies that have been ordered have been reviewed, and results considered in the medical decision making process. Re-Evaluation - Re-Evaluation First Eval Re-Evaluation Time: 19:21 Comment: Patient has received approximately 500 ml IVF as well as ketoralac, prochlorperazine, and diphenhydramine. States no headache at present however eye pain, blurred vision, and vertigo remain unchanged. Will obtain CT head. Second Eval Re-Evaluation Time: 19:43 Change: Improved Comment: Patient is reporting complete resolution in her symptoms. Her exam remains unremarkable. Labs show a mildly elevated white blood cell count of 11.9, normal CRP, and negative beta hCG. Her ESR is pending at this time are within normal CRP it is unlikely that this is going to be elevated. Plan at this time is to allow her IV fluids to complete and recheck vital signs. As long as her vitals are stable plan is to discharge patient with follow-up with her PCP without obtaining the CT scan at this time. Headache Course/Dx - Course Course Of Treatment: 33-year-old female with history of migraine headaches presents with complaints of headache, pain behind her right eye with blurring of her central vision, and constant vertigo that started 5 days ago. States she was evaluated at an urgent care center on 11/23/18, was diagnosed with a sinus infection, started on Augmentin twice a day 10 days, prednisone 20 mg twice a day 5 days, and meclizine 3 times a day when necessary. She was then seen in follow-up with her primary care provider on 11/25/18 and was given a prescription for hydrocodone-acetaminophen 5 mg/325 mg 1-2 tablets every 6 hours as needed for pain. Patient states that she has taken 2 doses of meclizine with the last being this morning around 9 AM as well as a single dose of the hydrocodone-acetaminophen at the same time with no relief in symptoms. Patient states his been several years she has had a migraine and that this is not her typical presentation. States her migraines typically involve a loss of vision usually in the right eye along with headache and photophobia that were usually resolves in about 2 hours after taking Excedrin. Denies fever, chills, facial droop, slurred speech, difficulty speaking, diplopia, photophobia, extremity weakness, numbness, or tingling, chest pain, palpitations, shortness of breath, abdominal pain, nausea, or vomiting. Afebrile. Hypertensive but vitals otherwise stable. Patient's exam was unremarkable including normal neurologic exam without any focal deficits. Lab work showed mildly elevated white blood cell count 11.9 which may be consistent with her diagnosis of an acute sinus infection and otherwise was unremarkable. Patient received 1 L normal saline, ketorolac 15 mg IV, diphenhydramine 25 mg IV, and prochlorperazine 5 mg IV with complete resolution in her symptoms. With symptom improvement I suspect that this may be related to her migraine history and may represent a vestibular migraine. A CT scan was ordered but with the resolution in her symptoms patient felt that she was comfortable being discharged home without obtaining the CT at this time. Her vital signs remained stable and exam unchanged therefore will discharge her home with close follow-up with her primary care provider. Anticipatory guidance and warning symptoms were reviewed with the patient. Verbalizes understanding and agrees with plan of care. - Diagnoses Differential Diagnosis/HQI/PQRI: Migraine, Sinus Headache, Other - vestibular migraine, vestibular neuritis Provider Diagnoses: Migraine headache, Vertigo Discharge - Sign-Out/Discharge Documenting (check all that apply): Patient Departure Patient Received Moderate/Deep Sedation with Procedure: No - Discharge Plan Condition: Stable Disposition: HOME Patient Education Materials: Vertigo (ED), Acute Headache (ED) Referrals: Danni Beaulieu NP [Primary Care Provider] - 3 Days (Follow up within 3 days for recheck of symptoms.) Additional Instructions: I suspect that your symptoms maybe related to your migraine history and may represent a condition called a vestibular migraine since you responded well to the treatment for migraine. I recommend continuing with your medications as previously prescribed. Follow up with your primary care provider within 3 days for recheck of symptoms. Return to the emergency room if you have a sudden severe headache, visual disturbances, speech difficulties, numbness, tingling, or weakness of extremities, confusion, loss of consciousness, or any worsening of your symptoms. - Billing Disposition and Condition Condition: STABLE Disposition: Home
[2018-11-26 18:50] LABS: ABS Basophils 0.1 10^3/ul (0-0.2); ABS Eosinophils 0 10^3/ul (0-0.6); ABS Monocytes 0.6 10^3/ul (0-0.8); ABS Neutrophils 8.2 10^3/ul (1.5-7.7); ABS Nucleated RBC 0 10^3/ul; Eosinophil % 0.1 %; Hematocrit 45 % (35-47); Hemoglobin 14.8 g/dl (12.0-16.0); Lymphocyte % 25.1 %; Mean Corpuscular HGB Conc 33 g/dl (31-36); Mean Corpuscular Hemoglobin 28 pg (27-31); Mean Corpuscular Volume 84 fL (80-97); Mean Platelet Volume 8.4 fL (7.4-10.4); Nucleated Red Blood Cells % 0.1; Platelet Count 271 10^3/ul (150-450); Red Blood Count 5.28 10^6/ul (4.00-5.40); Red Cell Distribution Width 14 % (10.5-15); White Blood Count 11.9 10^3/ul (3.5-10.8)
[2018-11-26 19:03] LABS: C Reactive Protein 1.27 mg/L (<8.01)
[2018-11-26 19:09] LABS: HCG Pregnancy < 0.60 mIU/mL
[2018-11-26 20:08] VITALS: BP 149/77
[2018-11-27 15:36] LABS: Erythrocyte Sed Rate 1 mm/Hr (0-20)
== END 2018-11-26 20:06 | disposition home or self-care (01) ==
LOC: ED 16:32
DX: G43.909 Migraine, unspecified, not intractable, without status migrainosus (principal); R42 Dizziness and giddiness
CPT/HCPCS: 36415; 84702; 85025; 85652; 86140; 96374; 96375; 99283; J0780; J1200; J1885

== ENCOUNTER 2019-02-26 15:45 | Emergency (ER) | payer OTHER ==
[2019-02-26 16:03] VITALS: BP 126/74
--- NOTE | 2019-02-26 16:22 | ED ---
Respiratory - HPI Summary HPI Summary: 33 yr old female with the complaint of coughing. The patient states she first had runny nose two weeks ago, and then she began with coughing. Cough is non productive. She has had coughing fits, and she sates she has a history of cough induced asthma. She denies any chance of . - History of Current Complaint Chief Complaint: UCGeneralIllness Stated Complaint: COUGH Time Seen by Provider: 02/26/19 16:10 Pain Intensity: 7 - Allergy/Home Medications Allergies/Adverse Reactions: Allergies Allergy/AdvReac Type Severity Reaction Status Date / Time No Known Allergies Allergy Verified 02/26/19 15:57 Home Medications: Home Medications Indomethacin CAP* [Indocin CAP*] 50 mg PO TID PRN 02/26/19 [History Confirmed ] Topiramate TAB(*) [Topamax 100 mg tab] 100 mg PO BID 02/26/19 [History Confirmed 02/26/19] Verapamil TAB* [Calan TAB*] 120 mg PO TID 02/26/19 [History Confirmed 02/26/19] PMH/Surg Hx/FS Hx/Imm Hx Endocrine/Hematology History: Denies: Hx Diabetes Cardiovascular History: Denies: Hx Hypertension, Hx Pacemaker/ICD History: Denies: Hx Renal Disease Sensory History: Reports: Hx Contacts or Glasses Denies: Hx Hearing Aid Opthamlomology History: Reports: Hx Contacts or Glasses Neurological History: Reports: Hx Migraine Psychiatric History: Denies: Hx Panic Disorder - Surgical History Surgery Procedure, Year, and Place: . Dental surgery. L knee surgery. appy Infectious Disease History: No Infectious Disease History: Denies: Traveled Outside the [place] in Last 30 Days - Family History Known Family History: Positive: None, Cardiac Disease, Diabetes, Other - Mother denies MS but reports brain CA, stroke, glaucoma (grandparents) Family History: Mother denies MS but reports brain CA, stroke, glaucoma ( grandparents, aunt), leukemia - Social History Alcohol Use: None Hx Substance Use: No Substance Use Type: Reports: None Hx Tobacco Use: No Smoking Status (MU): Never Smoked Tobacco Review of Systems Constitutional: Negative Positive: Nasal Discharge Positive: Cough. Negative: Shortness Of Breath All Other Systems Reviewed And Are Negative: Yes Physical Exam Triage Information Reviewed: Yes Vital Signs On Initial Exam: Initial Vitals Temp Pulse Resp BP Pulse Ox 98.2 F 98 16 126/74 100 02/26/19 15:59 02/26/19 15:59 02/26/19 15:59 02/26/19 15:59 02/26/19 15:59 Vital Signs Reviewed: Yes Appearance: Positive: Well-Appearing, No Pain Distress Skin: Positive: Warm, Skin Color Reflects Adequate Perfusion Head/Face: Positive: Normal Head/Face Inspection Eyes: Positive: EOMI, ALIZE ENT: Positive: Pharynx normal, Nasal congestion, TM red - right with effusion Neck: Positive: Nontender Respiratory/Lung Sounds: Positive: Clear to Auscultation, Breath Sounds Present Cardiovascular: Positive: RRR. Negative: Murmur Abdomen Description: Positive: Nontender. Negative: Distended Musculoskeletal: Positive: Strength/ROM Intact Neurological: Positive: Sensory/Motor Intact, Alert, Oriented to Person Place, Time, CN Intact II-III, Normal Gait, Speech Normal Psychiatric: Positive: Normal - Samara Coma Scale Best Eye Response: 4 - Spontaneous Best Motor Response: 6 - Obeys Commands Best Verbal Response: 5 - Oriented Coma Scale Total: 15 Diagnostics - Vital Signs Vital Signs Temp Pulse Resp BP Pulse Ox 02/26/19 15:59 98.2 F 98 16 126/74 100 - Laboratory Lab Statement: Any lab studies that have been ordered have been reviewed, and results considered in the medical decision making process. Disposition - Course Course Of Treatment: 33 yr old female with URI symptoms, right OM and acute bronchitis. - Diagnoses Provider Diagnoses: Acute bronchitis, Right otitis media Discharge - Sign-Out/Discharge Documenting (check all that apply): Patient Departure All imaging exams completed and their final reports reviewed: No Studies - Discharge Plan Condition: Good Disposition: HOME Prescriptions: Albuterol HFA INHALER* [Ventolin HFA Inhaler*] 1 - 2 puff INH Q6H PRN #1 mdi PRN Reason: Cough Azithromycin TAB* [Zithromax TAB (Z-ABI) 250 mg #6 tabs] 2 tab PO .TODAY, THEN 1 DAILY #1 abi Benzonatate CAP* [Tessalon 100 MG CAP*] 100 mg PO TID PRN #14 cap PRN Reason: Cough predniSONE TAB* [Deltasone 20 MG TAB*] 40 mg PO DAILY #8 tab Patient Education Materials: Acute Bronchitis (ED), Ear Infection (ED), Upper Respiratory Infection (ED) Referrals: Danni Beaulieu NP [Primary Care Provider] - 2 Days - Billing Disposition and Condition Condition: GOOD Disposition: Home
== END 2019-02-26 16:32 | disposition home or self-care (01) ==
LOC: UCCORT 15:45
DX: J20.9 Acute bronchitis, unspecified (principal); H66.91 Otitis media, unspecified, right ear; R05 Cough
CPT/HCPCS: 99212; G0463